=== PATIENT | female | born 1950 | race Caucasian/White ===

== ENCOUNTER 2017-03-02 21:21 | Emergency (ER) | payer OTHER ==
[2017-03-02 21:45] VITALS: BP 110/64; PULSE 90; TEMP 98.3; BMI 37.7
--- NOTE | 2017-03-02 22:27 | PDOC ---
History of Present Illness - General Chief Complaint: Respiratory Stated Complaint: CHEST PAIN Time Seen by Provider: 03/02/17 22:26 - History of Present Illness Initial Comments: 03/02/17 22:26 Mrs. Jaeger is a 66 yo female with no significant past medical history who presents to the emergency department complaining of a 1 day history of cough with productive yellow sputum and chest tightness. The patient denies shortness of breath, headache and dizziness. Denies fever, chills, nausea, vomit, diarrhea and constipation. Denies dysuria, frequency, urgency and hematuria. Allergies: NKDA Past surgical history: Denies Social history: Denies Past History - Past Medical History Allergies/Adverse Reactions: Allergies Allergy/AdvReac Type Severity Reaction Status Date / Time No Known Allergies Allergy Verified 03/02/17 21:44 Home Medications: Ambulatory Orders Pseudoephedrine HCl 30 mg PO QID #16 tablet 03/03/17 GI Disorders: Yes (GASTRIC ANTRUM ULCER 09/05) Hypercholesterolemia: Yes - Suicide/Smoking/Psychosocial Hx Smoking History: Never smoked Have you smoked in the past 12 months: No Information on smoking cessation initiated: No Hx Alcohol Use: No Drug/Substance Use Hx: No Substance Use Type: None Review of Systems - Review of Systems Comments:: 03/02/17 22:26 GENERAL/CONSTITUTIONAL: No fever or chills. No weakness. HEAD, EYES, EARS, NOSE AND THROAT: No change in vision. No ear pain or discharge. No sore throat. CARDIOVASCULAR: No chest pain or shortness of breath RESPIRATORY: +Cough with yellow sputum. No wheezing or hemoptysis. GASTROINTESTINAL: No nausea, vomiting, diarrhea or constipation. GENITOURINARY: No dysuria, frequency, or change in urination. MUSCULOSKELETAL: No joint or muscle swelling or pain. No neck or back pain. SKIN: No rash NEUROLOGIC: No headache, vertigo, loss of consciousness, or change in strength/ sensation. ENDOCRINE: No increased thirst. No abnormal weight change HEMATOLOGIC/LYMPHATIC: No anemia, easy bleeding, or history of blood clots. ALLERGIC/IMMUNOLOGIC: No hives or skin allergy. *Physical Exam - Vital Signs Last Vital Signs Temp Pulse Resp BP Pulse Ox 98.3 F 90 18 110/64 99 03/02/17 21:41 03/02/17 21:41 03/02/17 21:41 03/02/17 21:41 03/02/17 21:41 - Physical Exam Comments: 03/02/17 22:26 GENERAL: +Hacking cough observed. Awake, alert, and fully oriented, in no acute distress HEAD: No signs of trauma, normocephalic, atraumatic EYES: PERRLA, EOMI, sclera anicteric, conjunctiva clear ENT: Auricles normal inspection, hearing grossly normal, nares patent, oropharynx clear without exudates. Moist mucosa NECK: Normal ROM, supple, no lymphadenopathy, JVD, or masses LUNGS: No distress, speaks full sentences, clear to auscultation bilaterally HEART: Regular rate and rhythm, normal S1 and S2, no murmurs, rubs or gallops, peripheral pulses normal and equal bilaterally. ABDOMEN: Soft, nontender, normoactive bowel sounds. No guarding, no rebound. No masses EXTREMITIES: Normal inspection, Normal range of motion, no edema. No clubbing or cyanosis. NEUROLOGICAL: Cranial nerves II through XII grossly intact. Normal speech, normal gait, no focal sensorimotor deficits SKIN: Warm, Dry, normal turgor, no rashes or lesions noted. Medical Decision Making - Medical Decision Making 03/03/17 00:14 Ms. Jaeger presents with a 1 day history of cough with yellow sputum. CXR negative for acute process. Discharging patient to home with supportive care instructions. *DC/Admit/Observation/Transfer Diagnosis at time of Disposition: Cough - Discharge Dispostion Disposition: HOME - Referrals Referrals: Scott Segura MD [Primary Care Provider] - - Patient Instructions Printed Discharge Instructions: DI for Cough -- Adult
--- NOTE | 2017-03-02 22:38 | PDOC ---
Attending Attestation - HPI HPI: 03/02/17 22:49 66 yr old female, with no significant past medical history, who presents to the emergency room complaining of 1 day of chest discomfort and productive cough with yellow sputum. She describes the chest discomfort as tightness that is 8/ 10 in severity. Denies fever, chills, nausea, vomiting. Denies sick contact. Denies recent travel. <Chuyita Blanton - Last Filed: 03/02/17 22:49> - Resident Resident Name: Raad Rod - ED Attending Attestation I have performed the following: I have examined & evaluated the patient, The case was reviewed & discussed with the resident, I agree w/resident's findings & plan, Exceptions are as noted - HPI HPI: 03/03/17 00:25 cough for several days. Non productive cough - Physicial Exam PE: 03/03/17 00:26 Physical Exam General Appearance: Yes: Appropriately Dressed. No: Apparent Distress, Intoxicated HEENT: positive: EOMI, SHANELLE, Normal ENT Inspection, Normal Voice, TMs Normal, Pharynx Normal. negative: Pale Conjunctivae, Photophobia, Scleral Icterus (R), Scleral Icterus (L) Neck: positive: Trachea midline, Normal Thyroid, Supple. negative: Tender, Rigid, Carotid bruit, Stridor, Lymphadenopathy (R), Lymphadenopathy (L), Thyromegaly Respiratory/Chest: positive: Lungs Clear, Normal Breath Sounds. negative: Chest Tender, Respiratory Distress, Accessory Muscle Use, Labored Respiration, RES, Crackles, Rales, Rhonchi, Stridor, Wheezing, Dullness Cardiovascular: positive: Regular Rhythm, Regular Rate, S1, S2. negative: Edema , JVD, Murmur, Bradycardia, Tachycardia Vascular Pulses: Dorsalis-Pedis (R): 2+, Doralis-Pedis (L): 2+ Gastrointestinal/Abdominal: positive: Normal Bowel Sounds, Flat, Soft. negative : Tender, Organomegaly, Pulsatile Mass, Increased Bowel Sounds, Decreased BS, Distended, Guarding, Rebound, Hernia, Hepatomegaly, Spleenomegaly Lymphatic: negative: Adenopathy, Tenderness Musculoskeletal: positive: Normal Inspection. negative: CVA Tenderness, Decreased Range of Motion Extremity: positive: Normal Capillary Refill, Normal Inspection, Normal Range of Motion, Pelvis Stable. negative: Tender, Pedal Edema, Swelling, Erythema Integumentary: positive: Normal Color, Dry, Warm. 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 negative: EOM Palsy, Facial Droop, Sensory Deficit - Medical Decision Making 03/03/17 19:25 Pt discharged on decongestants and advised to follow up with her pcp. <Kelton Ley - Last Filed: 03/03/17 19:25>
--- NOTE | 2017-03-03 11:55 | EKG ---
Test Reason : Blood Pressure : / mmHG Vent. Rate : 078 BPM Atrial Rate : 078 BPM P-R Int : 130 ms QRS Dur : 082 ms QT Int : 380 ms P-R-T Axes : 061 002 -10 degrees QTc Int : 433 ms NORMAL SINUS RHYTHM LOW VOLTAGE QRS NONSPECIFIC T WAVE ABNORMALITY ABNORMAL ECG WHEN COMPARED WITH ECG OF 04-SEP-2015 14:58, T WAVE INVERSION NO LONGER EVIDENT IN ANTERIOR LEADS Confirmed by ANJU OLSON, HENRIK ([id number]) on 03/03/2017 11:55:17 AM Referred By: Confirmed By:HENRIK RENE MD
== END 2017-03-03 01:09 | disposition home or self-care (01) ==
LOC: JER 21:21
DX: R05 Cough (principal)
CPT/HCPCS: 71020-TC; 93005; 93010; 99281-25

== ENCOUNTER 2017-06-14 19:11 | Emergency (ER) | payer OTHER ==
[2017-06-14 19:21] VITALS: BP 119/81; PULSE 90; TEMP 99.5; BMI 37.8
--- NOTE | 2017-06-14 19:21 | PDOC ---
Rapid Medical Evaluation Time Seen by Provider: 06/14/17 19:12 Medical Evaluation: Allergies Allergy/AdvReac Type Severity Reaction Status Date / Time No Known Allergies Allergy Verified 03/02/17 21:44 06/14/17 19:16 I have performed a brief in-person evaluation of this patient. The patient presents with a chief complaint of: cough, SOB x 2 days, denies any fever, midsternal "chest pain" since last night - worse today, worse with cough , 01/30. Pt has no PMH, takes no meds. Pertinent physical exam findings: lungs CTAB I have ordered the following: flu swab The patient will proceed to the ED for further evaluation. Discharge Disposition - Diagnosis Cough - Referrals - Patient Instructions - Post Discharge Activity
--- NOTE | 2017-06-14 19:54 | PDOC ---
History of Present Illness - General Chief Complaint: Cold Symptoms Stated Complaint: CHEST PAIN/S.O.B Time Seen by Provider: 06/14/17 19:12 History Source: Patient, Family Exam Limitations: No Limitations - History of Present Illness Initial Comments: 06/14/17 19:49 Patient here with complaints of fevers, frequent nonproductive cough, body aches , sore throat pain and general body aches. Son reports that multiple family members have been diagnosed with influenza positive Timing/Duration: reports: constant, getting worse Severity: reports: moderate Associated Symptoms: reports: denies symptoms, chest pain/soreness, cough, dizziness, fever/chills, nasal drainage, sore throat Past History - Travel Traveled outside of the country in the last 30 days: No Close contact w/someone who was outside of country & ill: No - Past Medical History Allergies/Adverse Reactions: Allergies Allergy/AdvReac Type Severity Reaction Status Date / Time No Known Allergies Allergy Verified 06/14/17 19:18 Home Medications: Ambulatory Orders Oseltamivir Phosphate [Tamiflu -] 75 mg PO BID #10 capsule 06/14/17 COPD: No GI Disorders: Yes (GASTRIC ANTRUM ULCER 09/05) Hypercholesterolemia: Yes - Suicide/Smoking/Psychosocial Hx Smoking History: Never smoked Have you smoked in the past 12 months: No Information on smoking cessation initiated: No Hx Alcohol Use: No Drug/Substance Use Hx: No Substance Use Type: None Review of Systems - Review of Systems Able to Perform ROS?: Yes Is the patient limited Mongolian proficient: Yes Constitutional: Yes: Symptoms Reported, See HPI, Malaise. No: Fever HEENTM: Yes: Symptoms Reported, See HPI, Nose Congestion Respiratory: Yes: Symptoms reported, See HPI, Cough, Shortness of Breath. No: Wheezing Musculoskeletal: Yes: Symptoms Reported Integumentary: Yes: Symptoms Reported, See HPI All Other Systems: Reviewed and Negative *Physical Exam - Vital Signs Last Vital Signs Temp Pulse Resp BP Pulse Ox 99.5 F 90 18 119/81 97 06/14/17 19:19 06/14/17 19:19 06/14/17 19:19 06/14/17 19:19 06/14/17 19:19 - Physical Exam General Appearance: Yes: Nourished, Appropriately Dressed, Apparent Distress HEENT: positive: SHANELLE, Normal ENT Inspection, TMs Normal, Pharynx Normal, Rhinorrhea, Sinus Tenderness, Thrush Neck: positive: Supple, Lymphadenopathy (R) Respiratory/Chest: positive: Lungs Clear, Normal Breath Sounds (but coarse) Musculoskeletal: positive: Normal Inspection Extremity: positive: Normal Capillary Refill, Normal Inspection, Normal Range of Motion Integumentary: positive: Normal Color, Dry, Warm, Pale 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, Fully Oriented, Alert, Normal Mood/ Affect, Normal Response, Motor Strength 09/24 Progress Note - Progress Note Progress Note: Influenzal respiratory , will treat with Tamiflu as FAMILY is ill with positive results *DC/Admit/Observation/Transfer Diagnosis at time of Disposition: Cough, Influenzal acute upper respiratory infection - Discharge Dispostion Disposition: HOME Condition at time of disposition: Stable Admit: No - Referrals - Patient Instructions Printed Discharge Instructions: DI for Viral Upper Respiratory Infection -- Adult Additional Instructions: Rest, drink lots of fluids: Teas, water, soups, Pedialyte Saltwater gargles Steamy showers/seem to face break up mucus Old-fashioned treatments help! Avoid contact with others until fevers and cough resolved as this is very contagious Lots of handwashing and good hygiene Continue [id number] medications for symptomatic relief Tylenol or Motrin for fever and pain Take all of Tamiflu as directed: 1 tab every 12 hours for 5 days Followup with private physician in one to 2 days as needed or if worsening Return to emergency department for worsened symptoms, fevers, dehydration Influenza takes between 5 and 7 days for resolution To not participate in any activity, work, or school until fevers and cough are gone for at least one day - Post Discharge Activity Forms/Work/School Notes: Back to Work
--- NOTE | 2017-06-15 12:43 | EKG ---
Test Reason : Blood Pressure : / mmHG Vent. Rate : 084 BPM Atrial Rate : 084 BPM P-R Int : 128 ms QRS Dur : 074 ms QT Int : 352 ms P-R-T Axes : 055 006 000 degrees QTc Int : 415 ms NORMAL SINUS RHYTHM NONSPECIFIC ST AND T WAVE ABNORMALITY ABNORMAL ECG WHEN COMPARED WITH ECG OF 02-MAR-2017 22:07, NO SIGNIFICANT CHANGE WAS FOUND Confirmed by ESTEVAN ROJAS MD ([id number]) on 06/15/2017 12:43:19 PM Referred By: Confirmed By:ESTEVAN ROJAS MD
== END 2017-06-14 20:14 | disposition home or self-care (01) ==
LOC: JERFT 19:11
DX: J11.1 Influenza due to unidentified influenza virus with other respiratory manifestations (principal); E78.00 Pure hypercholesterolemia, unspecified; Z87.19 Personal history of other diseases of the digestive system
CPT/HCPCS: 87804; 93005; 93010; 99281-25

== ENCOUNTER 2017-06-23 13:21 | Emergency (ER) | payer SELFPAY ==
[2017-06-23 13:33] VITALS: BMI 37.8
[2017-06-23] MEDS ORDERED: ALBUTEROL SO4 2.5/IPRATROPIUM 0.5 INH SOL 3 ML VIAL.NEB. NEB ONE ×2 (15:39→17:10)
--- NOTE | 2017-06-23 15:42 | PDOC ---
Rapid Medical Evaluation Chief Complaint: Shortness of Breath Medical Evaluation: Allergies Allergy/AdvReac Type Severity Reaction Status Date / Time No Known Allergies Allergy Verified 06/23/17 13:30 Vital Signs Temp Pulse Resp BP Pulse Ox 98.3 F 106 H 18 122/75 100 06/23/17 13:32 06/23/17 13:32 06/23/17 13:32 06/23/17 13:32 06/23/17 13:32 06/23/17 15:41 Patient triaged before start of RME, seen in waiting room. 67 year old female with history of PUD seen here on 06/14 and diagnosed with influenza. Completed course of Tamiflu, but is having worsening symptoms including cough, shortness of breath, and chest pain. V/s notable for P 106. EKG CXR Labs including CBC, CMP, cardiac profile, lactic acid, blood cultures DuoNeb Discharge Disposition - Discharge Dispostion Last Admission D/C Date: 09/05/15 - Referrals Referrals: Scott Segura MD [Primary Care Provider] - - Patient Instructions - Post Discharge Activity
[2017-06-23 16:49] LABS: BASO % 0.5 % (0-2.0); EOS % 0.5 % (0-4.5); HEMATOCRIT 36.4 % (32.4-45.2); HEMOGLOBIN 12.3 GM/dL (10.7-15.3); LYMPH % 42.2 % (8-40); MCH 28.4 pg (25.7-33.7); MCHC 33.6 g/dl (32.0-36.0); MEAN CELL VOLUME 84.3 fl (80-96); MEAN PLT VOLUME 9.1 fl (7.5-11.1); NEUT % 50.8 % (42.8-82.8); PLATELET COUNT 202 K/MM3 (134-434); RBC 4.32 M/mm3 (3.60-5.2); RDW 14.3 % (11.6-15.6); WHITE BLOOD COUNT 10.3 K/mm3 (4.0-10.0)
[2017-06-23 17:09] LABS: ALBUMIN 3.9 g/dl (3.4-5.0); ANION GAP 8 (8-16); BLOOD UREA NITROGEN 12 mg/dL (7-18); CALCIUM 8.5 mg/dL (8.5-10.1); CHLORIDE 105 mmol/L (98-107); CO2 25 mmol/L (21-32); GLUCOSE,RANDOM 96 mg/dL (74-106); POTASSIUM 3.7 mmol/L (3.5-5.1); SODIUM 138 mmol/L (136-145)
[2017-06-23] MEDS ORDERED: guaiFENesin 200 MG/10 ML 10 ML UNIT-DOSE CUPS PO ONE (17:14)
[2017-06-23] MEDS ORDERED: guaiFENesin/CODEINE 10 ML UNIT-DOSE CUPS PO ONE (17:14)
[2017-06-23 17:16] LABS: ALK PHOS 98 U/L (45-117); BILIRUBIN,TOTAL 1.2 mg/dL (0.2-1.0); CREATININE 0.6 mg/dL (0.55-1.02); SGOT/AST 33 U/L (15-37); SGPT/ALT 46 U/L (12-78); TOT PROT 7.8 g/dl (6.4-8.2)
[2017-06-23] MEDS ORDERED: guaiFENesin/CODEINE 5 ML UNIT-DOSE CUPS PO ONE (17:16)
[2017-06-23 19:22] VITALS: BP 108/93; PULSE 93; TEMP 99.3
[2017-06-23] MEDS ORDERED: AZITHROMYCIN 250 MG TABLET PO ONE (19:30)
--- NOTE | 2017-06-23 19:38 | PDOC ---
History of Present Illness - General History Source: Patient, Family Exam Limitations: No Limitations <Panchito Gillespie - Last Filed: 06/23/17 19:41> - General History Source: Patient Exam Limitations: No Limitations - History of Present Illness Initial Comments: 06/23/17 20:15 The patient is a 67 year old female, with no significant past medical history, who presents to the emergency department with, progressively worsening dry cough and shortness of breath for approx. 1 weeks. The patient reports she was diagnosed with influenza on 06/14/17 and prescribed Tamiflu which she finished approx. 4 days ago. The patient reports that in the past couple of days the dry cough has been progressively getting worse and reports the dry cough is worse at night and interfering with her sleep. She denies recent fevers , chills, headache or dizziness. She denies recent nausea, vomit, diarrhea or constipation. She denies recent dysuria, frequency, urgency or hematuria. She denies recent chest pain. Allergies: NKA Past surgical history: None reported. Social history: Nonsmoker. Denies EtOH use and recreational drug use. Primary Care Physician: Dr. Segura <Fransisco Montoya - Last Filed: 06/23/17 21:41> - General Chief Complaint: Shortness of Breath Stated Complaint: COUGH Time Seen by Provider: 06/23/17 19:21 Past History - Past Medical History COPD: No GI Disorders: Yes (GASTRIC ANTRUM ULCER 09/05) Hypercholesterolemia: Yes - Suicide/Smoking/Psychosocial Hx Smoking History: Never smoked Have you smoked in the past 12 months: No Information on smoking cessation initiated: No Hx Alcohol Use: No Drug/Substance Use Hx: No Substance Use Type: None <Panchito Gillespie - Last Filed: 06/23/17 19:41> <Fransisco Montoya - Last Filed: 06/23/17 21:41> - Past Medical History Allergies/Adverse Reactions: Allergies Allergy/AdvReac Type Severity Reaction Status Date / Time No Known Allergies Allergy Verified 06/23/17 13:30 Home Medications: Ambulatory Orders Oseltamivir Phosphate [Tamiflu -] 75 mg PO BID #10 capsule 06/14/17 Albuterol Sulfate Inhaler - [Ventolin HFA Inhaler -] 1 - 2 inh PO Q4H PRN #1 inhaler 06/23/17 Albuterol Sulfate Inhaler - [Ventolin HFA Inhaler -] 1 - 2 inh PO Q4H PRN #1 inhaler 06/23/17 Azithromycin 250 mg PO DAILY #4 tablet 06/23/17 Azithromycin 250 mg PO DAILY #4 tablet 06/23/17 Guaifenesin Dm [Robitussin Dm -] 10 ml PO Q8H PRN #15 cup 06/23/17 Guaifenesin Dm [Robitussin Dm -] 10 ml PO Q8H PRN #15 cup 06/23/17 Review of Systems - Review of Systems Comments:: 06/23/17 20:16 GENERAL/CONSTITUTIONAL: No fever or chills. No weakness. HEAD, EYES, EARS, NOSE AND THROAT: No change in vision. No ear pain or discharge. No sore throat. CARDIOVASCULAR: +Shortness of breath. No chest pain. RESPIRATORY: +Dry cough. No wheezing, or hemoptysis. GASTROINTESTINAL: No nausea, vomiting, diarrhea or constipation. GENITOURINARY: No dysuria, frequency, or change in urination. MUSCULOSKELETAL: No joint or muscle swelling or pain. No neck or back pain. SKIN: No rash NEUROLOGIC: No headache, vertigo, loss of consciousness, or change in strength/ sensation. ENDOCRINE: No increased thirst. No abnormal weight change. HEMATOLOGIC/LYMPHATIC: No anemia, easy bleeding, or history of blood clots. ALLERGIC/IMMUNOLOGIC: No hives or skin allergy. <Fransisco Montoya - Last Filed: 06/23/17 21:41> *Physical Exam - Vital Signs Last Vital Signs Temp Pulse Resp BP Pulse Ox 99.3 F 93 H 20 108/93 99 06/23/17 19:21 06/23/17 19:21 06/23/17 19:21 06/23/17 19:21 06/23/17 19:21 <Panchito Gillespie - Last Filed: 06/23/17 19:41> - Vital Signs Last Vital Signs Temp Pulse Resp BP Pulse Ox 99.3 F 93 H 20 108/93 99 06/23/17 19:21 06/23/17 19:21 06/23/17 19:21 06/23/17 19:21 06/23/17 19:21 - Physical Exam Comments: 06/23/17 20:17 GENERAL: Awake, alert, and fully oriented. HEAD: No signs of trauma EYES: PERRLA, EOMI, sclera anicteric, conjunctiva clear ENT: Auricles normal inspection, hearing grossly normal, nares patent, oropharynx clear without exudates. Moist mucosa NECK: Normal ROM, supple, no lymphadenopathy, JVD, or masses LUNGS: +Coughing sporadically during exam. Breath sounds equal, clear to auscultation bilaterally. No wheezes, and no crackles HEART: Regular rate and rhythm, normal S1 and S2, no murmurs, rubs or gallops ABDOMEN: Soft, nontender, normoactive bowel sounds. No guarding, no rebound. No masses EXTREMITIES: Normal range of motion, no edema. No clubbing or cyanosis. No cords, erythema, or tenderness NEUROLOGICAL: Cranial nerves II through XII grossly intact. Normal speech, normal gait SKIN: Warm, Dry, normal turgor, no rashes or lesions noted. <Fransisco Montoya - Last Filed: 06/23/17 21:41> Heart Score/ECG Review #1 ECG reviewed & interpreted by me at: 14:00 06/23/17 19:34 NSR 98, no std/ben, TWI III, normal axis, normal intervals, QTC 474 msec <Panchito Gillespie - Last Filed: 06/23/17 19:41> ED Treatment Course - LABORATORY CBC & Chemistry Diagram: 06/23/17 16:05 06/23/17 16:05 - ADDITIONAL ORDERS Additional order review: Laboratory Results 06/23/17 06/23/17 16:05 16:05 Sodium 138 Potassium 3.7 Chloride 105 Carbon Dioxide 25 Anion Gap 8 BUN 12 Creatinine 0.6 Creat Clearance w eGFR > 60 Random Glucose 96 Lactic Acid 1.2 Calcium 8.5 Total Bilirubin 1.2 H D AST 33 ALT 46 Alkaline Phosphatase 98 Creatine Kinase 110 Troponin I < 0.02 Total Protein 7.8 Albumin 3.9 06/23/17 16:05 RBC 4.32 MCV 84.3 MCHC 33.6 RDW 14.3 MPV 9.1 Neutrophils % 50.8 Lymphocytes % 42.2 H Monocytes % 6.0 Eosinophils % 0.5 D Basophils % 0.5 - Medications Given in the ED: ED Medications Discontinued Medications Generic Name Dose Route Start Last Admin Trade Name Freq PRN Reason Stop Dose Admin Albuterol/Ipratropium 1 amp 06/23/17 15:39 02/01/18 15:42 Duoneb - NEB 06/23/17 15:40 1 amp ONCE ONE Administration Albuterol/Ipratropium 1 amp 06/23/17 17:10 06/23/17 17:11 Duoneb - NEB 06/23/17 17:11 1 amp ONCE ONE Administration Guaifenesin/Codeine Phosphate 10 ml 06/23/17 17:14 06/23/17 17:18 Robitussin Ac - PO 06/23/17 17:15 10 ml ONCE ONE Administration <Panchito Gillespie - Last Filed: 06/23/17 19:41> - LABORATORY CBC & Chemistry Diagram: 06/23/17 16:05 06/23/17 16:05 - ADDITIONAL ORDERS Additional order review: Laboratory Results 06/23/17 06/23/17 16:05 16:05 Sodium 138 Potassium 3.7 Chloride 105 Carbon Dioxide 25 Anion Gap 8 BUN 12 Creatinine 0.6 Creat Clearance w eGFR > 60 Random Glucose 96 Lactic Acid 1.2 Calcium 8.5 Total Bilirubin 1.2 H D AST 33 ALT 46 Alkaline Phosphatase 98 Creatine Kinase 110 Troponin I < 0.02 Total Protein 7.8 Albumin 3.9 06/23/17 16:05 RBC 4.32 MCV 84.3 MCHC 33.6 RDW 14.3 MPV 9.1 Neutrophils % 50.8 Lymphocytes % 42.2 H Monocytes % 6.0 Eosinophils % 0.5 D Basophils % 0.5 - RADIOLOGY Radiograph Interpretation: 06/23/17 21:40 EXAM#: TYPE/EXAM: RESULT: [id number] RAD/CHEST PA LAT Exam: Chest x-ray - PA and lateral views. Indication: Clinical suspicion for pneumonia. Comparison: 03/02/2017 chest x-ray. Findings: There is no evidence of acute infiltrate, pulmonary vascular congestion, pleural effusion or pneumothorax. Normal size and contours of the cardiomediastinal silhouette. The thoracic aorta is uncoiled. Impression: No evidence of acute infiltrate or pleural effusion. Reported By: Sid Tierney DO - Medications Given in the ED: ED Medications Discontinued Medications Generic Name Dose Route Start Last Admin Trade Name Freq PRN Reason Stop Dose Admin Albuterol/Ipratropium 1 amp 06/23/17 15:39 06/23/17 15:42 Duoneb - NEB 06/23/17 15:40 1 amp ONCE ONE Administration Albuterol/Ipratropium 1 amp 06/23/17 17:10 06/23/17 17:11 Duoneb - NEB 06/23/17 17:11 1 amp ONCE ONE Administration Azithromycin 500 mg 06/23/17 19:30 06/23/17 20:06 Zithromax - PO 06/23/17 19:31 500 mg ONCE ONE Administration Guaifenesin/Codeine Phosphate 10 ml 06/23/17 17:14 06/23/17 17:18 Robitussin Ac - PO 06/23/17 17:15 10 ml ONCE ONE Administration <Fransisco Montoya - Last Filed: 06/23/17 21:41> Medical Decision Making - Medical Decision Making 06/23/17 19:31 A portion of this note was written by my scribe, under my supervision. Vital Signs Temp Pulse Resp BP Pulse Ox 99.3 F 93 H 20 108/93 99 06/23/17 19:21 06/23/17 19:21 06/23/17 19:21 06/23/17 19:21 06/23/17 19:21 67 year old female with history of HLD, GERD p/w persistent cough. On 06/14, the patient was diagnosed with influenza and prescribed. The patient was given a prescription of tamiflu which the patient has completed. However, developed wosrening cough, chest congestion, but no fevers, chills. Denies chest pain or shortness of breath. Pt attempted to go to PMD but office was unavailable. Came into the ED for an evaluation. Chest xray reviewed. No infiltrates. CBC, BMP 06/23/17 16:05 06/23/17 16:05 CMP Sodium 138 mmol/L (136-145) 06/23/17 16:05 Potassium 3.7 mmol/L (3.5-5.1) 06/23/17 16:05 Chloride 105 mmol/L (98-107) 06/23/17 16:05 Carbon Dioxide 25 mmol/L (21-32) 06/23/17 16:05 Anion Gap 8 (8-16) 06/23/17 16:05 BUN 12 mg/dL (7-18) 06/23/17 16:05 Creatinine 0.6 mg/dL (0.55-1.02) 06/23/17 16:05 Creat Clearance w eGFR > 60 (>60) 06/23/17 16:05 Random Glucose 96 mg/dL (74-106) 06/23/17 16:05 Lactic Acid 1.2 mmol/L (0.0-2.0) 06/23/17 16:05 Calcium 8.5 mg/dL (8.5-10.1) 06/23/17 16:05 Total Bilirubin 1.2 mg/dL (0.2-1.0) H D 06/23/17 16:05 AST 33 U/L (15-37) 06/23/17 16:05 ALT 46 U/L (12-78) 06/23/17 16:05 Alkaline Phosphatase 98 U/L (45-117) 06/23/17 16:05 Creatine Kinase 110 IU/L (26-192) 06/23/17 16:05 Troponin I < 0.02 ng/ml (0.00-0.05) 06/23/17 16:05 Total Protein 7.8 g/dl (6.4-8.2) 06/23/17 16:05 Albumin 3.9 g/dl (3.4-5.0) 06/23/17 16:05 Labs reviewed. WBC 10.3 The patient overall is nontoxic appearing. She is breathing comfortably, coughing throughout the exam. No pneumonia noted, however, will treat as bronchitis. Will initiate azithromycin and have the patient follow up with PMD early next week. I had instructed the patient and family to return to the ER if symptoms worsen. <Panchito Gillespie - Last Filed: 06/23/17 19:41> *DC/Admit/Observation/Transfer - Discharge Dispostion Admit: No <Panchito Gillespie - Last Filed: 06/23/17 19:41> - Attestations Scribe Attestion: 06/23/17 20:17 Documentation prepared by Fransisco Montoya, acting as medical research scientist for Panchito Gillespie MD. <Fransisco Montoya - Last Filed: 06/23/17 21:41> Diagnosis at time of Disposition: Bronchitis - Discharge Dispostion Disposition: HOME Condition at time of disposition: Stable - Prescriptions Prescriptions: Albuterol Sulfate Inhaler - [Ventolin HFA Inhaler -] 1 - 2 inh PO Q4H PRN #1 inhaler PRN Reason: Wheezing Albuterol Sulfate Inhaler - [Ventolin HFA Inhaler -] 1 - 2 inh PO Q4H PRN #1 inhaler PRN Reason: Cough Azithromycin 250 mg PO DAILY #4 tablet Azithromycin 250 mg PO DAILY #4 tablet Guaifenesin Dm [Robitussin Dm -] 10 ml PO Q8H PRN #15 cup PRN Reason: Cough Guaifenesin Dm [Robitussin Dm -] 10 ml PO Q8H PRN #15 cup PRN Reason: Cough - Referrals Referrals: Scott Segura MD [Primary Care Provider] - - Patient Instructions Printed Discharge Instructions: DI for Acute Bronchitis Additional Instructions: Your chest radiograph is negative for pneumonia. Your blood work is unremarkable. Please take the azithromycin as prescribed. Follow up with your doctor on Tuesday. If your coughing is worsening or you develop a fever, please call your doctor or return to the ER. - Post Discharge Activity
[2017-06-23] MEDS ORDERED: AZITHROMYCIN 250 MG TABLET ONE (20:08)
--- NOTE | 2017-06-24 10:10 | EKG ---
Test Reason : Blood Pressure : / mmHG Vent. Rate : 098 BPM Atrial Rate : 098 BPM P-R Int : 120 ms QRS Dur : 082 ms QT Int : 372 ms P-R-T Axes : 055 -04 -03 degrees QTc Int : 474 ms NORMAL SINUS RHYTHM NONSPECIFIC ST ABNORMALITY ABNORMAL ECG WHEN COMPARED WITH ECG OF 14-JUN-2017 19:26, NONSPECIFIC T WAVE ABNORMALITY NO LONGER EVIDENT IN ANTERIOR LEADS QT HAS LENGTHENED Confirmed by BANDAR OLSON, PREM ([id number]) on 06/24/2017 10:10:23 AM Referred By: Confirmed By:PREM PORTILLO MD
== END 2017-06-23 20:21 | disposition home or self-care (01) ==
LOC: JER 13:21
PROC: 3E0F7GC Introduction of Other Therapeutic Substance into Respiratory Tract, Via Natural or Artificial Opening (ICD-10-PCS; principal; 2017-06-23)
PROC: 3E0F7GC Introduction of Other Therapeutic Substance into Respiratory Tract, Via Natural or Artificial Opening (ICD-10-PCS; 2017-06-23)
DX: J40 Bronchitis, not specified as acute or chronic (principal); K21.9 Gastro-esophageal reflux disease without esophagitis; E78.00 Pure hypercholesterolemia, unspecified
CPT/HCPCS: 36415; 71046-TC-FY; 80053; 82550; 83605; 84484; 85025; 87040; 93005; 93010; 99283-25

== ENCOUNTER 2017-09-14 16:38 | Observation (INO) | payer OTHER ==
--- NOTE | 2017-09-14 16:43 | PDOC ---
History of Present Illness - General History Source: Patient Exam Limitations: No Limitations <Elisa Kong - Last Filed: 09/14/17 18:06> <Sohail White - Last Filed: 09/19/17 07:05> - General Chief Complaint: Pain Stated Complaint: CHEST PAIN Time Seen by Provider: 09/14/17 16:41 - History of Present Illness Initial Comments: 09/14/17 18:03 The patient is a 67 year old female with a significant PMH of GERD, and left knee arthroscopy(6 years ago) who presents to the emergency department with chest pain for 1 day. The patient reports that she was at home resting yesterday when she felt a sudden onset of chest pain. She reports that she experienced some associated dizziness and nausea with her chest pain. The patient reports that when she woke up today her chest pain had worsened. She describes her chest pain as tight and sharp and worsens with a deep breath. She reports that she feels minimal relief of her chest pain when she lays down. The patient denies any palpitations shortness of breath. She denies any headache, dizziness, fever, or vomiting. She reports that this has never happened before. The patient denies any other complaints. Allergies: NKA Past surgical history: Left knee arthroscopy (6 years ago) Social history: None reported (Elisa Kong) Physical exam: Alert well-developed well-nourished no acute distress cooperative Afebrile, vital signs normal HEENT clear Neck supple without bruit mass or nodes Lungs clear with full breath sounds throughout bilaterally CV S1-S2 normal without murmur rub or gallop pulses full and symmetric no JVD or edema no bruits Abdomen soft nontender without mass or organomegaly Neurological intact Skin clear, no rash, adequate turgor and wet mucous membranes Extremities no CCE Impression: Possible acute coronary syndrome Plan: EKG and cardiac enzymes, CBC and chemistries, monitor, further medical management depending on results. (Sohail White) Past History <Elisa Kong - Last Filed: 09/14/17 18:06> - Past Medical History COPD: No GI Disorders: Yes (GASTRIC ANTRUM ULCER 09/05) Hypercholesterolemia: Yes - Suicide/Smoking/Psychosocial Hx Smoking History: Never smoked Have you smoked in the past 12 months: No Hx Alcohol Use: No Drug/Substance Use Hx: No Substance Use Type: None <Sohail White - Last Filed: 09/19/17 07:05> - Past Medical History Allergies/Adverse Reactions: Allergies Allergy/AdvReac Type Severity Reaction Status Date / Time No Known Allergies Allergy Verified 09/14/17 16:40 Home Medications: Ambulatory Orders Calcium Carbonate [Tums] 1 tab PO PRN 09/14/17 Aspirin Coated [Ecotrin -] 81 mg PO DAILY #30 tablet.ec 09/15/17 Pantoprazole Sodium [Protonix] 40 mg PO DAILY #30 tablet. 09/15/17 Review of Systems - Review of Systems Able to Perform ROS?: Yes <Elisa Kong - Last Filed: 09/14/17 18:06> <Sohail White - Last Filed: 09/19/17 07:05> - Review of Systems Comments:: 09/14/17 18:05 CONSTITUTIONAL: Absent: fever, chills, diaphoresis, generalized weakness, malaise, loss of appetite HEENT: Absent: rhinorrhea, nasal congestion, throat pain, throat swelling, difficulty swallowing, mouth swelling, ear pain, eye pain, visual Changes CARDIOVASCULAR: (+) chest pain Absent: syncope, palpitations, irregular heart rate, lightheadedness, peripheral edema RESPIRATORY: Absent: cough, shortness of breath, dyspnea with exertion, orthopnea, wheezing, stridor, hemoptysis GASTROINTESTINAL: Absent: abdominal pain, abdominal distension, nausea, vomiting, diarrhea, constipation, melena, hematochezia GENITOURINARY: Absent: dysuria, frequency, urgency, hesitancy, hematuria, flank pain, genital pain MUSCULOSKELETAL: Absent: myalgia, arthralgia, joint swelling SKIN: Absent: rash, itching, pallor HEMATOLOGIC/IMMUNOLOGIC: Absent: easy bleeding, easy bruising, lymphadenopathy, frequent infections ENDOCRINE: Absent: unexplained weight gain, unexplained weight loss, heat intolerance, cold intolerance NEUROLOGIC: Absent: headache, focal weakness or paresthesias, dizziness, unsteady gait, seizure, mental status changes, bladder or bowel incontinence PSYCHIATRIC: Absent: anxiety, depression, suicidal or homicidal ideation, hallucinations. (Elisa Kong) - Vital Signs Last Vital Signs Temp Pulse Resp BP Pulse Ox 98.1 F 63 18 119/71 99 04/26/18 06:00 09/15/17 06:00 09/15/17 06:00 09/15/17 06:00 09/15/17 06:00 ED Treatment Course - LABORATORY CBC & Chemistry Diagram: 09/14/17 17:09 09/14/17 17:30 <Elisa Kong - Last Filed: 09/14/17 18:06> - LABORATORY CBC & Chemistry Diagram: 09/15/17 07:50 09/15/17 07:50 <Sohail White - Last Filed: 09/19/17 07:05> - ADDITIONAL ORDERS Additional order review: 09/14/17 17:09 RBC 4.38 MCV 85.9 MCHC 33.8 RDW 13.1 MPV 8.8 Neutrophils % 43.3 Lymphocytes % 44.3 H Monocytes % 8.4 Eosinophils % 2.9 Basophils % 1.1 - RADIOLOGY Radiology Studies Ordered: Category Date Time Status CHEST X-RAY PORTABLE* [RAD] Stat Radiology 09/14/17 16:42 Completed - Medications Given in the ED: ED Medications Discontinued Medications Generic Name Dose Route Start Last Admin Trade Name Freq PRN Reason Stop Dose Admin Aspirin 162 mg 09/14/17 17:32 09/14/17 17:36 Asa - PO 09/14/17 17:33 162 mg ONCE ONE Administration Aspirin 81 mg 09/15/17 10:00 09/15/17 10:15 Ecotrin - PO 81 mg DAILY JOHNSON Administration Famotidine 20 mg 09/14/17 22:00 09/15/17 10:15 Pepcid - PO 20 mg BID JOHNSON Administration Nitroglycerin 0.4 mg 09/14/17 17:32 09/14/17 17:36 Nitrostat - SL 09/14/17 17:33 0.4 mg ONCE ONE Administration Pantoprazole Sodium 40 mg 09/14/17 18:52 09/14/17 19:01 Protonix Iv IVPB 09/14/17 18:53 40 mg ONCE ONE Administration Medical Decision Making <Elisa Kong - Last Filed: 09/14/17 18:06> <Sohail White - Last Filed: 09/19/17 07:05> - Medical Decision Making 09/19/17 07:[address]-T wave changes in the anterolateral leads. This consists of some mild flattening of the ST segments. There is no change compared to prior cardiograms. Patient remains clinically and hemodynamically stable. Serial enzymes and EKG pending. Signed out to Dr. Hudson at 6 PM pending further lab results and medical evaluation. (Sohail White) *DC/Admit/Observation/Transfer <Elisa Kong - Last Filed: 09/14/17 18:06> <Sohail White - Last Filed: 09/19/17 07:05> Diagnosis at time of Disposition: Chest pain - Discharge Dispostion Disposition: HOME Condition at time of disposition: Stable - Attestations Scribe Attestion: 09/14/17 18:06 Documentation prepared by Elisa Kong, acting as medical claims manager for Sohail Quinteros MD. (Elisa Kong)
[2017-09-14] MEDS ORDERED: ASPIRIN 81 MG CHEWABLE TABLETS PO ONE (17:32)
[2017-09-14] MEDS ORDERED: NITROGLYCERIN SUBLINGUAL 1/150 0.4 MG TAB SL ONE (17:32)
[2017-09-14] MEDS ORDERED: ASPIRIN 81 MG CHEWABLE TABLETS ONE (17:33)
[2017-09-14] MEDS ORDERED: NITROGLYCERIN SUBLINGUAL 1/150 0.4 MG TAB ONE (17:34)
[2017-09-14 18:05] LABS: BASO % 1.1 % (0-2.0); EOS % 2.9 % (0-4.5); HEMATOCRIT 37.6 % (32.4-45.2); HEMOGLOBIN 12.7 GM/dl (10.7-15.3); LYMPH % 44.3 % (8-40); MCHC 33.8 g/dl (32.0-36.0); MEAN CELL VOLUME 85.9 fl (80-96); MEAN PLT VOLUME 8.8 fl (7.5-11.1); MONO % 8.4 % (3.8-10.2); NEUT % 43.3 % (42.8-82.8); PLATELET COUNT 242 K/MM3 (134-434); RBC 4.38 M/mm3 (3.60-5.2); RDW 13.1 % (11.6-15.6); WHITE BLOOD COUNT 9.6 K/mm3 (4.0-10.8)
[2017-09-14 18:21] LABS: ALBUMIN 3.8 g/dl (3.5-5.0); ALK PHOS 89 U/L (32-92); ANION GAP 5 (8-16); BLOOD UREA NITROGEN 19 mg/dl (7-18); CALCIUM 10.1 mg/dl (8.4-10.2); CHLORIDE 104 mmol/L (98-107); CO2 28 mmol/L (22-28); GLUCOSE,RANDOM 91 mg/dl (74-106); POTASSIUM 3.9 mmol/L (3.5-5.1); SGOT/AST 34 U/L (10-42); SGPT/ALT 36 U/L (10-40); SODIUM 137 mmol/L (136-145); TOT PROT 7.1 g/dl (6.4-8.3)
[2017-09-14 18:30] LABS: BILIRUBIN,TOTAL 0.6 mg/dl (0.2-1.0); CREATININE 0.8 mg/dl (0.6-1.3)
--- NOTE | 2017-09-14 18:46 | PDOC ---
*Physical Exam - Vital Signs Last Vital Signs Temp Pulse Resp BP Pulse Ox 98.4 F 62 16 117/56 98 09/14/17 16:39 09/14/17 18:34 09/14/17 18:34 09/14/17 18:34 09/14/17 16:39 Heart Score/ECG Review - History History: Slightly suspicious - Electrocardiogram EKG: Non specific repolarization disturbance - Age Age: >/= 65 - Risk Factors Risk Factors Heart Score: Yes Hx Obesity Based on the list above the patient has:: 1-2 risk factors - Troponin Troponin: </= normal limit - Score Heart Score - Total: 4 ED Treatment Course - LABORATORY CBC & Chemistry Diagram: 09/14/17 17:09 09/14/17 17:30 - ADDITIONAL ORDERS Additional order review: Laboratory Results 09/14/17 09/14/17 17:30 17:30 Sodium 137 Potassium 3.9 Chloride 104 Carbon Dioxide 28 Anion Gap 5 L BUN 19 H Creatinine 0.8 Creat Clearance w eGFR > 60 Random Glucose 91 Calcium 10.1 Total Bilirubin 0.6 AST 34 ALT 36 Alkaline Phosphatase 89 Creatine Kinase 163 Troponin I < 0.03 Total Protein 7.1 Albumin 3.8 09/14/17 17:09 RBC 4.38 MCV 85.9 MCHC 33.8 RDW 13.1 MPV 8.8 Neutrophils % 43.3 Lymphocytes % 44.3 H Monocytes % 8.4 Eosinophils % 2.9 Basophils % 1.1 - Medications Given in the ED: ED Medications Discontinued Medications Generic Name Dose Route Start Last Admin Trade Name Freq PRN Reason Stop Dose Admin Aspirin 162 mg 09/14/17 17:32 09/14/17 17:36 Asa - PO 09/14/17 17:33 162 mg ONCE ONE Administration Nitroglycerin 0.4 mg 09/14/17 17:32 09/14/17 17:36 Nitrostat - SL 09/14/17 17:33 0.4 mg ONCE ONE Administration Progress Note - Progress Note Progress Note: Care of this patient received from . Patient presents with midsternal chest pain without associated symptoms. Patient received nitroglycerin 0.4 mg sublingually with relief of her pain. No previous history of this type of pain. Patient has a history of GERD but today's pain is very different from her usual reflux discomfort. According to son, patient had upper endoscopy last year that was reportedly "normal". No known history of esophagitis secondary to GERD. Electrocardiogram shows flattening of T waves in lateral leads; this has been present previously and EKGs dated 03/02/17 and 06/23/17. No other significant abnormality seen on EKG tracing. Laboratory evaluation shows evidence of mild prerenal azotemia but no other significant abnormality. Troponin is not elevated Patient's PMD is Dr. Segura. Case discussed with [facility] hospitalist admitting physician, Dr. Rosenbaum. Hospitalist service will admit this patient if Dr. Segura does not admit. covering for : He was contacted and case discussed with him: Hospitalist service can admit. Patient admitted to telemetry/observation status. *DC/Admit/Observation/Transfer Diagnosis at time of Disposition: Chest pain Qualifiers: Chest pain type: precordial pain Qualified Code(s): R07.2 - Precordial pain - Discharge Dispostion Disposition: HOME Condition at time of disposition: Stable Admit: Yes - Referrals - Patient Instructions - Post Discharge Activity
[2017-09-14] MEDS ORDERED: PANTOPRAZOLE SODIUM 40 MG VIAL IVPB ONE (18:52)
[2017-09-14] MEDS ORDERED: PANTOPRAZOLE SODIUM 40 MG VIAL ONE (18:54)
--- NOTE | 2017-09-14 20:50 | HP ---
CHIEF COMPLAINT: PCP: HISTORY OF PRESENT ILLNESS: The patient is a 67 year old female with a significant PMH of GERD, and left knee arthroscopy(6 years ago) who presents to the emergency department with chest pain for 1 day. The patient reports that she was at home resting yesterday when she felt a sudden onset of chest pain. She reports that she experienced some associated dizziness and nausea with her chest pain. The patient reports that when she woke up today her chest pain had worsened. She describes her chest pain as tight and sharp and worsens with a deep breath. She reports that she feels minimal relief of her chest pain when she lays down. The patient denies any palpitations shortness of breath. She denies any headache, dizziness, fever, or vomiting. She reports that this has never happened before. The patient denies any other complaints. Allergies: NKA Past surgical history: Left knee arthroscopy (6 years ago) Social history: None reported ER course was notable for: (1) first trop <0.03 (2) chest pain subsided (3) Social History: denies Smoking: Alcohol: Drugs: Family History: Allergies No Known Allergies Allergy (Verified 09/14/17 16:40) HOME MEDICATIONS: Home Medications Medication Instructions Recorded Calcium Carbonate [Tums] 1 tab PO PRN 09/14/17 Esomeprazole Magnesium [Nexium 20 mg PO PRN 09/14/17 24Hr] REVIEW OF SYSTEMS CONSTITUTIONAL: Absent: fever, chills, diaphoresis, generalized weakness, malaise, loss of appetite, weight change HEENT: Absent: rhinorrhea, nasal congestion, throat pain, throat swelling, difficulty swallowing, mouth swelling, ear pain, eye pain, visual changes CARDIOVASCULAR: Absent: +chest pain, -syncope, palpitations, irregular heart rate, lightheadedness, peripheral edema RESPIRATORY: Absent: cough, shortness of breath, dyspnea with exertion, orthopnea, wheezing, stridor, hemoptysis GASTROINTESTINAL: Absent: abdominal pain, abdominal distension, nausea, vomiting, diarrhea, constipation, melena, hematochezia GENITOURINARY: Absent: dysuria, frequency, urgency, hesitancy, hematuria, flank pain, genital pain MUSCULOSKELETAL: Absent: myalgia, arthralgia, joint swelling, back pain, neck pain SKIN: Absent: rash, itching, pallor HEMATOLOGIC/IMMUNOLOGIC: Absent: easy bleeding, easy bruising, lymphadenopathy, frequent infections ENDOCRINE: Absent: unexplained weight gain, unexplained weight loss, heat intolerance, cold intolerance NEUROLOGIC: Absent: headache, focal weakness or paresthesias, dizziness, unsteady gait, seizure, mental status changes, bladder or bowel incontinence PSYCHIATRIC: Absent: anxiety, depression, suicidal or homicidal ideation, hallucinations. PHYSICAL EXAMINATION Vital Signs - 24 hr 09/14/17 09/14/17 16:39 18:34 Temperature 98.4 F Pulse Rate 71 Pulse Rate [ 62 Right Radial] Respiratory 20 16 Rate Blood Pressure 144/76 Blood Pressure 117/56 [Left Arm] O2 Sat by Pulse 98 Oximetry (%) GENERAL: Awake, alert, and fully oriented, only speaks Mohawk, in no acute distress. HEAD: Normal with no signs of trauma. LUNGS: Breath sounds equal, clear to auscultation bilaterally. No wheezes, and no crackles. No accessory muscle use. HEART: Regular rate and rhythm, normal S1 and S2 without murmur, rub or gallop. denies current chest pain ABDOMEN: Soft, nontender, not distended, normoactive bowel sounds, no guarding, no rebound, no masses. No hepatomegaly or splenomegaly. MUSCULOSKELETAL: Normal range of motion at all joints. No bony deformities or tenderness. No CVA tenderness. UPPER EXTREMITIES: 2+ pulses, warm, well-perfused. No cyanosis. No clubbing. No peripheral edema. LOWER EXTREMITIES: 2+ pulses, warm, well-perfused. No calf tenderness. No peripheral edema. NEUROLOGICAL: Cranial nerves II-XII intact. Normal speech. Normal gait. PSYCHIATRIC: Cooperative. Good eye contact. Appropriate mood and affect. SKIN: Warm, dry, normal turgor, no rashes or lesions noted, normal capillary refill. Laboratory Results - last 24 hr 09/14/17 09/14/17 09/14/17 17:09 17:30 17:30 WBC 9.6 RBC 4.38 Hgb 12.7 Hct 37.6 MCV 85.9 MCH 29.0 MCHC 33.8 RDW 13.1 Plt Count 242 MPV 8.8 Neutrophils % 43.3 Lymphocytes % 44.3 H Monocytes % 8.4 Eosinophils % 2.9 Basophils % 1.1 Sodium 137 Potassium 3.9 Chloride 104 Carbon Dioxide 28 Anion Gap 5 L BUN 19 H Creatinine 0.8 Creat Clearance w eGFR > 60 Random Glucose 91 Calcium 10.1 Total Bilirubin 0.6 AST 34 ALT 36 Alkaline Phosphatase 89 Creatine Kinase 163 Creatine Kinase Index 0.8 CK-MB (CK-2) 1.4 Troponin I < 0.03 Total Protein 7.1 Albumin 3.8 ASSESSMENT/PLAN: This 67 yr old vietnamese speaking female had a bout of chest pain this afternoon and came in to ER for evaluation. She is currently admitted under Dr. Segura for cardiac observation, with a first trop neg and no EKG changes Problem List - Problem (1) Chest pain Assessment/Plan: -admission for obs for chest pain work up -admt to Dr. Norris -serial cardiac enzymes pending -no current chest pain -monitor v/s, tele Code(s): R07.9 - CHEST PAIN, UNSPECIFIED Qualifiers: Chest pain type: precordial pain Qualified Code(s): R07.2 - Precordial pain (2) ACS (acute coronary syndrome) Assessment/Plan: -continue home meds including ASA 81 mg Code(s): I24.9 - ACUTE ISCHEMIC HEART DISEASE, UNSPECIFIED Visit type - Emergency Visit Emergency Visit: Yes ED Registration Date: 09/14/17 Care time: The patient presented to the Emergency Department on the above date and was hospitalized for further evaluation of their emergent condition. - New Patient This patient is new to me today: Yes Date on this admission: 09/14/17 - Critical Care Critical Care patient: No Hospitalist Screening - Colonoscopy Questionnaire Colonoscopy Questionnaire: Colonoscopy Questionnaire - Patient: 50 - 75 years old and never had a screening colonoscopy: Unknown History of colon or rectal polyps, or CA: Unknown History of IBD, Crohn's disease or UC: Unknown History of abdominal radiation therapy as a child: Unknown - Relative: 1 with colon or rectal CA, or polyps at age 60 or younger: Unknown Colon or rectal CA diagnosed at age 45 or younger: Unknown Multiple relatives with colon or rectal CA: Unknown - Outcome: Screening Result: Negative Screen
[2017-09-14 21:23] VITALS: BMI 38.8
[2017-09-14] MEDS ORDERED: ACETAMINOPHEN 325 MG TABLET (FP) PO PRN (21:53)
[2017-09-15] MEDS: FAMOTIDINE 20 MG TABLET PO SCH ×2 (00:07→10:15)
[2017-09-15 06:53] VITALS: BP 119/71; PULSE 63; TEMP 98.1
[2017-09-15] MEDS ORDERED: PATIENT'S OWN MEDICATION (NON-FORMULARY) (Esomeprazole Magnesium [Nexium 24hr] 20 MG) PO SCH (07:45)
[2017-09-15 07:49] LABS: PH,URINE 6.5 (4.5-8); URINE APPEARANCE Clear; URINE BILIRUBIN Negative (NEGATIVE); URINE BLOOD Negative (NEGATIVE); URINE GLUCOSE (UA) Negative (NEGATIVE); URINE KETONE Negative (NEGATIVE); URINE LEUK ESTERASE Negative (NEGATIVE); URINE NITRITE Negative (NEGATIVE); URINE PROTEIN Negative (NEGATIVE); URINE UROBILINOGEN 0.2 (0.2-1.0)
[2017-09-15 07:50] LABS: URINE COLOR YELLOW
[2017-09-15 08:37] LABS: ALBUMIN 3.8 g/dl (3.5-5.0); ALK PHOS 88 U/L (32-92); ANION GAP 5 (8-16); BLOOD UREA NITROGEN 17 mg/dl (7-18); CALCIUM 9.5 mg/dl (8.4-10.2); CHLORIDE 105 mmol/L (98-107); CO2 28 mmol/L (22-28); GLUCOSE,RANDOM 99 mg/dl (74-106); PHOSPHOROUS 3.3 mg/dl (2.5-4.6); POTASSIUM 4.2 mmol/L (3.5-5.1); SGOT/AST 35 U/L (10-42); SGPT/ALT 37 U/L (10-40); SODIUM 138 mmol/L (136-145); TOT PROT 6.9 g/dl (6.4-8.3)
[2017-09-15 08:42] LABS: EOS % 3.9 % (0-4.5); HEMOGLOBIN 12.9 GM/dl (10.7-15.3); LYMPH % 40.1 % (8-40); MCH 29.1 pg (25.7-33.7); MEAN CELL VOLUME 85.7 fl (80-96); MEAN PLT VOLUME 8.3 fl (7.5-11.1); MONO % 6.5 % (3.8-10.2); NEUT % 48.5 % (42.8-82.8); PLATELET COUNT 254 K/MM3 (134-434); RBC 4.44 M/mm3 (3.60-5.2); RDW 13.1 % (11.6-15.6); WHITE BLOOD COUNT 8.2 K/mm3 (4.0-10.8)
[2017-09-15] MEDS ORDERED: ASPIRIN COATED 81 MG TABLET.EC PO SCH (10:00)
[2017-09-15 10:02] LABS: CREATININE < 0.8 mg/dl (0.6-1.3)
[2017-09-15 10:13] LABS: INR 1.16 (0.82-1.09); PROTHROMBIN TIME (PATIENT) 12.9 SEC (10.2-13.0)
--- NOTE | 2017-09-15 11:01 | DS ---
Physical Exam: SUBJECTIVE: Patient seen and examined, denies any chest pain or shortness of breath, reports chest discomfort resolved after belching this morning OBJECTIVE:The patient is a 67 year old female with a significant PMH of GERD, and left knee arthroscopy(6 years ago) who presents to the emergency department with chest pain for 1 day. The patient reports that she was at home resting yesterday when she felt a sudden onset of chest pain. She reports that she experienced some associated dizziness and nausea with her chest pain. The patient reports that when she woke up today her chest pain had worsened. She describes her chest pain as tight and sharp and worsens with a deep breath. She reports that she feels minimal relief of her chest pain when she lays down. The patient denies any palpitations shortness of breath. She denies any headache, dizziness, fever, or vomiting. She reports that this has never happened before. The patient denies any other complaints. Vital Signs Period Temp Pulse Resp BP Sys/Arellano Pulse Ox Last 24 Hr 97.8 F-98.4 F 57-71 16-20 107-144/56-76 98-100 PHYSICAL EXAM GENERAL: The patient is awake, alert, and fully oriented, in no acute distress. HEAD: Normal with no signs of trauma. EYES: PERRL, extraocular movements intact, sclera anicteric, conjunctiva clear. ENT: Ears normal, nares patent, oropharynx clear without exudates, moist mucous membranes. NECK: Trachea midline, full range of motion, supple. LUNGS: Breath sounds equal, clear to auscultation bilaterally, no wheezes, no crackles, no accessory muscle use. HEART: Regular rate and rhythm, S1, S2 without murmur, rub or gallop. ABDOMEN: Soft, nontender, nondistended, normoactive bowel sounds, no guarding, no rebound, no hepatosplenomegaly, no masses. EXTREMITIES: 2+ pulses, warm, well-perfused, no edema. NEUROLOGICAL: Cranial nerves II through XII grossly intact. Normal speech, gait not observed. PSYCH: Normal mood, normal affect. SKIN: Warm, dry, normal turgor, no rashes or lesions noted. LABS Laboratory Results - last 24 hr 09/14/17 09/14/17 09/14/17 17:09 17:30 17:30 WBC 9.6 RBC 4.38 Hgb 12.7 Hct 37.6 MCV 85.9 MCH 29.0 MCHC 33.8 RDW 13.1 Plt Count 242 MPV 8.8 Neutrophils % 43.3 Lymphocytes % 44.3 H Monocytes % 8.4 Eosinophils % 2.9 Basophils % 1.1 PT with INR INR Sodium 137 Potassium 3.9 Chloride 104 Carbon Dioxide 28 Anion Gap 5 L BUN 19 H Creatinine 0.8 Creat Clearance w eGFR > 60 Random Glucose 91 Calcium 10.1 Phosphorus Magnesium Total Bilirubin 0.6 AST 34 ALT 36 Alkaline Phosphatase 89 Creatine Kinase 163 Creatine Kinase Index 0.8 CK-MB (CK-2) 1.4 Troponin I < 0.03 Total Protein 7.1 Albumin 3.8 Urine Color Urine Appearance Urine pH Ur Specific [place] Urine Protein Urine Glucose (UA) Urine Ketones Urine Blood Urine Nitrite Urine Bilirubin Urine Urobilinogen Ur Leukocyte Esterase 09/14/17 09/15/17 09/15/17 23:30 07:14 07:50 WBC 8.2 RBC 4.44 Hgb 12.9 Hct 38.0 MCV 85.7 MCH 29.1 MCHC 34.0 RDW 13.1 Plt Count 254 MPV 8.3 Neutrophils % 48.5 Lymphocytes % 40.1 H Monocytes % 6.5 Eosinophils % 3.9 Basophils % 1.0 PT with INR INR Sodium Potassium Chloride Carbon Dioxide Anion Gap BUN Creatinine Creat Clearance w eGFR Random Glucose Calcium Phosphorus Magnesium Total Bilirubin AST ALT Alkaline Phosphatase Creatine Kinase 145 Creatine Kinase Index CK-MB (CK-2) Troponin I < 0.02 Total Protein Albumin Urine Color Yellow Urine Appearance Clear Urine pH 6.5 Ur Specific [place] 1.020 Urine Protein Negative Urine Glucose (UA) Negative Urine Ketones Negative Urine Blood Negative Urine Nitrite Negative Urine Bilirubin Negative Urine Urobilinogen 0.2 Ur Leukocyte Esterase Negative 09/15/17 09/15/17 09/15/17 07:50 07:50 07:50 WBC RBC Hgb Hct MCV MCH MCHC RDW Plt Count MPV Neutrophils % Lymphocytes % Monocytes % Eosinophils % Basophils % PT with INR 12.9 INR 1.16 Sodium 138 Potassium 4.2 Chloride 105 Carbon Dioxide 28 Anion Gap 5 L BUN 17 Creatinine < 0.8 Creat Clearance w eGFR > 60 Random Glucose 99 Calcium 9.5 Phosphorus 3.3 Magnesium 2.0 Total Bilirubin 1.0 D AST 35 ALT 37 Alkaline Phosphatase 88 Creatine Kinase Creatine Kinase Index CK-MB (CK-2) Troponin I < 0.03 Total Protein 6.9 Albumin 3.8 Urine Color Urine Appearance Urine pH Ur Specific [place] Urine Protein Urine Glucose (UA) Urine Ketones Urine Blood Urine Nitrite Urine Bilirubin Urine Urobilinogen Ur Leukocyte Esterase 09/15/17 07:50 WBC RBC Hgb Hct MCV MCH MCHC RDW Plt Count MPV Neutrophils % Lymphocytes % Monocytes % Eosinophils % Basophils % PT with INR INR Sodium Potassium Chloride Carbon Dioxide Anion Gap BUN Creatinine Creat Clearance w eGFR Random Glucose Calcium Phosphorus Magnesium Total Bilirubin AST ALT Alkaline Phosphatase Creatine Kinase 147 Creatine Kinase Index CK-MB (CK-2) Troponin I Total Protein Albumin Urine Color Urine Appearance Urine pH Ur Specific [place] Urine Protein Urine Glucose (UA) Urine Ketones Urine Blood Urine Nitrite Urine Bilirubin Urine Urobilinogen Ur Leukocyte Esterase IMAGING chest xray: no acute pathology ekg: nsr non specific t wave abnormality, unchanged from prior HOSPITAL COURSE: Patient is a 67 y/o female that was admitted from the emergency department for chest pain r/o acs, troponin x 3 wnl, ekg unchanged from prior. Patient denies any chest discomfort at this time, she reports her symptoms resolved after belching this morning. Patient was kept on 24 hour telemetry monitoring , no events was noted. PLAN - discharge home, bland diet with ppi - strict follow up with primary care physician within 1 week Date of Admission:09/14/17 Date of Discharge: 09/15/17 Minutes to complete discharge: 45 Discharge Summary Reason For Visit: CHEST PAIN Current Active Problems Chest pain (Acute) Condition: Stable - Instructions Diet, Activity, Other Instructions: resume low sodium bland diet continue protonix daily as prescribed small frequent meals throughout the day please follow up with GI within 2 weeks if any new or persistent symptoms develop please return to the emergency department Disposition: HOME - Home Medications Comprehensive Discharge Medication List: Ambulatory Orders Calcium Carbonate [Tums] 1 tab PO PRN 09/14/17 Esomeprazole Magnesium [Nexium 24Hr] 20 mg PO PRN 09/14/17 This patient is new to me today: Yes Date on this admission: 09/15/17 Emergency Visit: No Critical Care patient: No - Discharge Referral Referred to [facility] No
[2017-09-15 11:07] LABS: CHOLESTEROL 233 mg/dl; HDL CHOLESTEROL 43 mg/dl (29-89); LDL CHOLESTEROL (ONLY DFH) 149 mg/dl; TRIGLYCERIDES 206 mg/dl (35-160)
[2017-09-15 11:32] LABS: N-TERMINAL BNP 62.81 pg/ml (5-125)
[2017-09-15] MEDS ORDERED: PANTOPRAZOLE 40 MG TABLET (FP) PO ONE (12:30)
--- NOTE | 2017-09-15 12:59 | EKG ---
Test Reason : Blood Pressure : / mmHG Vent. Rate : 073 BPM Atrial Rate : 073 BPM P-R Int : 126 ms QRS Dur : 078 ms QT Int : 414 ms P-R-T Axes : 062 001 -07 degrees QTc Int : 456 ms NORMAL SINUS RHYTHM NONSPECIFIC ST ABNORMALITY ABNORMAL ECG WHEN COMPARED WITH ECG OF 23-JUN-2017 13:48, NO SIGNIFICANT CHANGE WAS FOUND Confirmed by HENRIK RENE MD ([id number]) on 09/15/2017 12:59:43 PM Referred By: MD MCMAHON Confirmed By:HENRIK RENE MD
--- NOTE | 2017-09-15 16:15 | EKG ---
Test Reason : Blood Pressure : / mmHG Vent. Rate : 059 BPM Atrial Rate : 059 BPM P-R Int : 130 ms QRS Dur : 084 ms QT Int : 432 ms P-R-T Axes : 054 013 000 degrees QTc Int : 427 ms SINUS BRADYCARDIA NONSPECIFIC ST AND T WAVE ABNORMALITY ABNORMAL ECG WHEN COMPARED WITH ECG OF 14-SEP-2017 16:49, NONSPECIFIC T WAVE ABNORMALITY NOW EVIDENT IN ANTERIOR LEADS Confirmed by ANJU OLSON, HENRIK ([id number]) on 09/15/2017 4:14:37 PM Referred By: ALYCE Confirmed By:HENRIK RENE MD
--- NOTE | 2017-09-21 10:37 | EKG ---
Test Reason : Blood Pressure : / mmHG Vent. Rate : 066 BPM Atrial Rate : 066 BPM P-R Int : 130 ms QRS Dur : 080 ms QT Int : 392 ms P-R-T Axes : 043 -05 -17 degrees QTc Int : 410 ms NORMAL SINUS RHYTHM NONSPECIFIC ST AND T WAVE ABNORMALITY ABNORMAL ECG WHEN COMPARED WITH ECG OF 15-SEP-2017 05:51, NO SIGNIFICANT CHANGE WAS FOUND Confirmed by BOB OLSON, ESTEVAN ([id number]) on 09/21/2017 10:37:36 AM Referred By: DIOGENES Confirmed By:ESTEVAN ROJAS MD
== END 2017-09-15 13:35 | disposition home or self-care (01) ==
LOC: FER 16:38 → FM/S 19:43
PROVIDERS: ADMIT Internal Medicine; ATTEND Nurse Practitioner Family
PROC: 3E033GC Introduction of Other Therapeutic Substance into Peripheral Vein, Percutaneous Approach (ICD-10-PCS; principal; 2017-09-14)
DX: R07.2 Precordial pain (principal); I24.9 Acute ischemic heart disease, unspecified; K21.9 Gastro-esophageal reflux disease without esophagitis
CPT/HCPCS: 36415; 71045-TC-FY; 80053; 80061; 81003; 82550; 82553; 83735; 83880; 84100; 84484; 85025; 85610; 93005; 93010; 96374; 99284-25; G0378

== ENCOUNTER 2018-04-27 20:14 | Emergency (ER) | payer OTHER ==
[2018-04-27 20:17] VITALS: BP 126/61; PULSE 70; TEMP 98.5; BMI 42.5
--- NOTE | 2018-04-27 20:17 | PDOC ---
Rapid Medical Evaluation Time Seen by Provider: 04/27/18 20:15 Medical Evaluation: Allergies Allergy/AdvReac Type Severity Reaction Status Date / Time No Known Allergies Allergy Verified 09/14/17 16:40 I have performed a brief in-person evaluation of this patient. The patient presents with a chief complaint of: trip and fall. Right knee pain Pertinent physical exam findings: minimal swelling right knee I have ordered the following: xray right knee The patient will proceed to the ED for further evaluation. Discharge Disposition - Diagnosis Right knee pain - Referrals - Patient Instructions - Post Discharge Activity
--- NOTE | 2018-04-27 21:09 | PDOC ---
History of Present Illness - General Chief Complaint: Pain, Acute Stated Complaint: FALL/RT KNEE INJURY Time Seen by Provider: 04/27/18 20:15 History Source: Patient Exam Limitations: No Limitations - History of Present Illness Initial Comments: 04/27/18 21:03 HISTORY OF PRESENT ILLNESS: This is 68-year-old lady with past medical history of osteoarthritis of the knees presents emergency department for evaluation of right knee pain status post trip and fall. Patient states she was walking in the hallway of her house when the family dog ran in front of her causing her to lose her balance falling down landing on her right knee. She's not been able to ambulate since the time of the initial injury. She denies head trauma or LOC. No recent travel or sick contacts. PAST MEDICAL HISTORY: OA of knees SURGICAL HISTORY: Denies ALLERGIES: No known drug allergies REVIEW OF SYSTEMS General/Constitutional: Denies fever or chills. Denies weakness, weight change. HEENT: Denies change in vision. Denies ear pain or discharge. Denies sore throat. Cardiovascular: Denies chest pain or shortness of breath. Respiratory: Denies cough, wheezing, or hemoptysis. Gastrointestinal: Denies nausea, vomiting, diarrhea or constipation. Denies rectal bleeding. Genitourinary: Denies dysuria, frequency, or change in urination. Musculoskeletal: Right knee pain. Denies neck or back pain. Skin and breasts: Denies rash or easy bruising. Neurologic: Denies headache, vertigo, loss of consciousness, or loss of sensation. Psychiatric: Denies depression or anxiety. Endocrine: Denies increased thirst. Denies abnormal weight change. Hematologic/Lymphatic: Denies anemia, easy bleeding, or history of blood clots. Allergic/Immunologic: Denies hives or skin allergy. Denies latex allergy. PHYSICAL EXAM General Appearance: Well-appearing, appropriately dressed. No apparent distress , no intoxication. HEENT: EOMI, PERRLA, normal ENT inspection, normal voice, TMs normal, pharynx normal. No conjunctival pallor. No photophobia, scleral icterus. Neck: Supple. Trachea midline. No tenderness, rigidity, carotid bruit, stridor , lymphadenopathy, or thyromegaly. Respiratory/Chest: Lungs CTAB. No shortness of breath, chest tenderness, respiratory distress, accessory muscle use. No crackles, rales, rhonchi, stridor , wheezing, dullness Cardiovascular: RRR. S1, S2. No JVD, murmur, bradycardia, tachycardia. Vascular Pulses: Dorsalis-Pedis (R): 2+, Dorsalis-Pedis (L): 2+ Gastrointestinal/Abdominal: Normal bowel sounds. Abdomen soft, non-distended. No tenderness or rebound tenderness. No organomegaly, pulsatile mass, guarding, hernia, hepatomegaly, splenomegaly. Lymphatic: No adenopathy, tenderness. Musculoskeletal/Extremities: Normal inspection. FROM of all extremities, normal capillary refill. Pelvis Stable. No CVA tenderness. Right knee tender to palpation around the entire knee but worse in the popliteal region. No palpable masses present. Negative Nael sign. No bony tenderness to tibia, fibula or femur. Patella is mobile. Integumentary: Appropriate color, dry, warm. 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 Fully oriented, alert. Appropriate mood/affect. Motor strength 5/5. No appreciable EOM palsy, facial droop or sensory deficit. Past History - Past Medical History Allergies/Adverse Reactions: Allergies Allergy/AdvReac Type Severity Reaction Status Date / Time No Known Allergies Allergy Verified 04/27/18 20:17 Home Medications: Ambulatory Orders Acetaminophen [Tylenol] 325 mg PO ASDIR 04/27/18 COPD: No GI Disorders: Yes (GASTRIC ANTRUM ULCER 09/05) HTN: No Hypercholesterolemia: Yes - Suicide/Smoking/Psychosocial Hx Smoking History: Never smoked Have you smoked in the past 12 months: No Hx Alcohol Use: No Drug/Substance Use Hx: No Substance Use Type: None *Physical Exam - Vital Signs Last Vital Signs Temp Pulse Resp BP Pulse Ox 98.5 F 70 18 126/61 98 04/27/18 20:15 04/27/18 20:15 04/27/18 20:15 04/27/18 20:15 04/27/18 20:15 Moderate Sedation - Procedure Monitoring Vital Signs: Procedure Monitoring Vital Signs Temperature 98.5 F 04/27/18 20:15 Pulse Rate 70 04/27/18 20:15 Respiratory Rate 18 04/27/18 20:15 Blood Pressure 126/61 04/27/18 20:15 O2 Sat by Pulse Oximetry (%) 98 04/27/18 20:15 Medical Decision Making - Medical Decision Making 04/27/18 21:05 A/P: 68 old woman with right knee pain status post trip and fall Right knee is diffusely tender worse in the popliteal No palpable masses noted Negative Nael sign Patella is mobile No bony tenderness to femur, tibia or fibula. Tender to palpation of the patella. Minimal swelling noted Patient has an appointment with an orthopedist for evaluation of osteoarthritis of the knees. The patient and the son do not remember the name of the orthopedist a very been in contact with. X-rays of the right knee as read by me: No acute fractures or dislocations present. Immobilizer, crutches, Percocet one tablet Results of x-ray have been reviewed with the patient who verbalizes understanding of plan. Patient agrees to take Naprosyn for pain control until she is evaluated by an orthopedist. *DC/Admit/Observation/Transfer Diagnosis at time of Disposition: Right knee pain Qualifiers: Chronicity: acute Qualified Code(s): M25.561 - Pain in right knee - Discharge Dispostion Disposition: HOME Condition at time of disposition: Stable Decision to Admit order: No - Referrals Referrals: Rosendo Ochoa MD [Staff Physician] - - Patient Instructions Additional Instructions: Take Tylenol or Aleve as needed for pain. Follow manufacturers instructions for appropriate dosage. Try not to walk or bear weight on your knee as much as possible for the next 3 days. Apply ice for 20 minutes and removed for at least 20 minutes before reapplying the ice. Keep immobilizer on your knee as much as possible. Whenever possible keep her foot elevated. You've been given the number for an orthopedist. If symptoms do not resolve within the next 7 days call the orthopedist for further evaluation. Return to emergency department for discoloration of the foot, numbness or tingling to the foot, worsening pain, or any other concerns. Thank you very much for choosing us to provide your emergent healthcare needs. - Post Discharge Activity
== END 2018-04-27 21:30 | disposition home or self-care (01) ==
LOC: JERFT 20:14
PROC: 2W3RXYZ Immobilization of Left Lower Leg using Other Device (ICD-10-PCS; principal; 2018-04-27)
DX: S89.81XA Other specified injuries of right lower leg, initial encounter (principal); M17.0 Bilateral primary osteoarthritis of knee; W01.0XXA Fall on same level from slipping, tripping and stumbling without subsequent striking against object, initial encounter; Y93.89 Activity, other specified; Y92.038 Other place in apartment as the place of occurrence of the external cause; Y99.8 Other external cause status
CPT/HCPCS: 73560-TC-RT-FY; 99282-25

== ENCOUNTER 2018-07-07 06:23 | Day surgery (SDC) | payer OTHER ==
[~2018-07-07 06:23] MED LIST: CEFAZOLIN 2 GM/D5W 2 GM/50 ML ML IVPB ONE; CELECOXIB 200 MG CAPSULE PO ONE; GABAPENTIN 300 MG CAPSULE (FP) PO ONE; ROPIVICAINE 0.2%/MORPH PF/KETOROLAC - 51ML DISP.SYRINGE IA ONE; TRANEXAMIC ACID 1000 MG/10 ML VIAL IVPUSH ONE; oxyCODONE HCL 10 MG SUSTAINED ACTING TABLET PO ONE
[2018-07-07 06:50] VITALS: BMI 38.3
[2018-07-07] MEDS ORDERED: MIDAZOLAM HCL 2 MG/2 ML SINGLE DOSE VIAL ONE ×2 (06:57)
[2018-07-07] MEDS ORDERED: ceFAZolin SODIUM 1 GM VIAL ONE ×3 (07:23→08:32)
[2018-07-07] MEDS ORDERED: VANCOMYCIN 1,000 MG VIAL (RESTRICTED TO ID ONLY) ONE (07:23)
[2018-07-07] MEDS ORDERED: MAG HYDROX/AL HYDROX/SIMETH 30 ML UNIT-DOSE CUP PO PRN (08:07)
[2018-07-07] MEDS ORDERED: ONDANSETRON 4 MG/2 ML VIAL IVPUSH PRN ×2 (08:07→10:24)
--- NOTE | 2018-07-07 08:07 | HP ---
[facility] - Chief Complaint Chief Complaint: right knee pain - Past Medical History Allergies/Adverse Reactions: Allergies Allergy/AdvReac Type Severity Reaction Status Date / Time No Known Allergies Allergy Verified 07/07/18 07:01 - Current Medications Current Medications: Home Medications Medication Instructions Recorded Ibuprofen [Motrin -] 400 mg PO PRN PRN 07/07/18 Satellite Physical Exam - Physical Examination Vital Signs: Vital Signs Period Temp Pulse Resp BP Sys/Arellano Pulse Ox Last 24 Hr 98.0 F 72 16 120/68 96-96 General Appearance: Well Nourished, Well Developed, Alert & Oriented x3 ENT: Clear Lung: Normal air movement Heart: Regular rate & rhythm Extremities: Other (right knee- + swelling, + ttp medially, decr rom, nvi xrays show grade 4 medial djd) Neurological: Intact, Alert, Oriented Satellite Impression/Plan - Impression/Plan Impression: right knee medial djd Operative Procedure: right medial nicki ukr Date to be Performed: 07/07/18
[2018-07-07] MEDS ORDERED: LACTATED RINGERS SOLUTION 1,000 ML IV SCH (08:15)
[2018-07-07] MEDS ORDERED: ROPIVICAINE 0.2%/MORPH PF/KETOROLAC - 51ML DISP.SYRINGE IA ONE ×3 (08:35→09:47)
[2018-07-07] MEDS ORDERED: TRANEXAMIC ACID 1000 MG/10 ML VIAL ONE (08:48)
[2018-07-07] MEDS ORDERED: GELATIN, ABSORBABLE 100 EACH SPONGE TP ONE ×2 (09:29→09:32)
[2018-07-07] MEDS ORDERED: THROMBIN (BOVINE) 5,000 UNIT VIAL TP ONE ×2 (09:29→09:32)
[2018-07-07] MEDS ORDERED: MULTIVITAMINS (DAILY MVI) TABLET (FP) PO SCH (10:00)
[2018-07-07] MEDS ORDERED: PANTOPRAZOLE 40 MG TABLET (FP) PO SCH (10:00)
--- NOTE | 2018-07-07 10:05 | OP ---
Operative Note - Note: Operative Date: 07/07/18 (rafat) Pre-Operative Diagnosis: right knee medial djd Operation: right medial nicki ukr Post-Operative Diagnosis: Same as Pre-op Surgeon: Timothy Trejo Wood Scrap Handler: Usman Victor Anesthesiologist/BISCUIT FACTORY WORKER: Fercho Salomon Anesthesia: Spinal, Local Specimens Removed: bone fragments Estimated Blood Loss (mls): 100 Operative Report Dictated: Yes
[2018-07-07] MEDS ORDERED: PROMETHAZINE HCL 25 MG/1 ML VIAL IVPB PRN (10:24)
[2018-07-07] MEDS ORDERED: ACETAMINOPHEN 1000 MG/100 ML VIAL (NON FORMULARY) IVPB ONE (10:25)
--- NOTE | 2018-07-07 15:46 | SPEC ---
DATE OF OPERATION: 06/27/2018 PREOPERATIVE DIAGNOSIS: Degenerative joint disease, right knee. POSTOPERATIVE DIAGNOSIS: Degenerative joint disease, right knee. PROCEDURE: Right medial unicompartmental knee replacement with robotic-assisted navigation (MAKOplasty) and patelloplasty. SURGICAL ATTENDING: Timothy Trejo MD HEEL PRICKER: ASHLYN Jordan ANESTHESIA: Regional and spinal. CLOSURE: Medial unicompartmental NATE components with a 4 femur, 4 tibia, and an 8 polyethylene; No. 1 Vicryl, fascia; 0 and 2-0, subcutaneous; 3-0 Monocryl subcuticular with skin glue for skin; 4-0 undyed Vicryl for pin sites. ESTIMATED BLOOD LOSS: Negligible. TOURNIQUET TIME: Approximately 24 minutes. COMPLICATIONS: None. CONDITION: To recovery in stable condition. DESCRIPTION OF OPERATIVE PROCEDURE: Patient was taken to the operating room on June 27, 2018. Spinal and regional anesthesia was administered by the anesthesiologist. IV Kefzol and TXA were administered prophylactically prior to the case. A well-padded pneumatic tourniquet was placed on the right proximal thigh. The right lower extremity was prepped and draped in the usual sterile fashion. A 6- to 8-cm longitudinal incision over the medial side of the patella from mid patella to the tibial tubercle was incised and was deepened using Bovie cautery. An arthrotomy was then made just medial to the patellar tendon and the patella. Subperiosteal dissection was done on the anteromedial proximal tibia all the way back to the MCL. Partial fat pad excision was performed, exposing the medial compartment. Checkpoint was malleable at both the femur and the tibia. Using 2 stab incisions in the femur 1 handbreadth above the patella on the femur and 2 stab incisions 1 handbreadth below the tibial tubercle on the tibia, 2 threaded pins were drilled in parallel fashion from anterior to posterior, going through the proximal cortex and engaging the 2nd but not through the 2nd cortex. To these threaded pins were fastened navigation rays, 1 on the femur and 1 on the tibia. The knee was then registered with the navigation device with the center of the rotation of the hip, medial and lateral malleoli, and multiple points both on the femur and on the tibia. Excellent registration of less than 0.5 mm was obtained on both to ensure adequate registration. The navigation device ensured us to "pop the bubbles" both on the femur and the tibia and that was performed and passed registration. The knee was then thoroughly inspected to remove all osteophytes both on the femur and the tibia. Also, osteophytes on the trochlea and on the surface of the patella were removed as well. The knee was then stressed with valgus stress at 0, 30, 60, 90, and 120 degrees of flexion. This propagated a looseness/tightness graft. The virtual positions of the components were then optimized to ensure an excellent graft. The tracking also was optimized by manipulating the virtual position to ensure that the femoral component articulated with the central portion of the tibial component. The robot was then brought into the field and was registered. The robot was used to bur the bone on both the femur and the tibia as to the specifications of the components. The trial components were then applied on both the femur and the tibia with an appropriate polyethylene insert. The knee was taken through a range of motion and found to have full extension, full flexion, with excellent stability. Stressing the graft revealed an excellent looseness/tightness graft with the trial components in place. The trial components were removed. The knee was thoroughly irrigated with a copious amount of antibiotic irrigation. The real components were then cemented in using modern generation cement techniques with antibiotic cement and pressurization. After the cement was hardened, the knee was thoroughly inspected to remove all excess cement. The real polyethylene insert was then clipped into place. Range of motion and stability were again assessed to be as they were with the trials. At this time, the pins and the checkpoints were removed. The knee was again thoroughly irrigated. The arthrotomy was closed with No. 1 Vicryl, 0 and 2-0 subcutaneous, and 3-0 Monocryl subcuticular with skin glue for the skin, 4-0 undyed Vicryl for the pin sites. Sterile pressure dressing was placed over the knee. Patient awakened from anesthesia and transferred to recovery in stable condition. No complications. Estimated blood loss negligible. X-rays postoperatively revealed excellent position of the components. Selvin [id number]
[2018-07-07] MEDS ORDERED: CEFAZOLIN 2 GM in DEXTROSE 5%-WATER - 50 ML IVPB SCH (16:00)
[2018-07-07] MEDS: SENNOSIDES/DOCUSATE COMBO (SENNA PLUS) TABLET (UD) PO SCH (21:07)
[2018-07-07] MEDS: oxyCODONE HCL 5 MG TABLET PO PRN (21:07)
[2018-07-08] MEDS ORDERED: CEFAZOLIN 2 GM/D5W 2 GM/50 ML ML IVPB ONE
[2018-07-08 06:31] VITALS: BP 109/58; PULSE 58; TEMP 98
[2018-07-08] MEDS ORDERED: ASPIRIN 325 MG TABLET PO SCH (08:00)
[2018-07-08] MEDS: SENNOSIDES/DOCUSATE COMBO (SENNA PLUS) TABLET (UD) PO SCH (09:47)
[2018-07-08] MEDS: oxyCODONE HCL 5 MG TABLET PO PRN (09:48)
== END 2018-07-08 10:25 | disposition home health service (06) ==
LOC: FASUSAT 06:23 → FM/S 06:23 → FASUSAT 07-08 10:25
PROVIDERS: ATTEND Orthopaedic Surgery
PROC: 8E0YXBZ Computer Assisted Procedure of Lower Extremity (ICD-10-PCS; 2018-07-07)
PROC: 8E0X0CZ Robotic Assisted Procedure of Upper Extremity, Open Approach (ICD-10-PCS; 2018-07-07)
PROC: 0SRC0L9 Replacement of Right Knee Joint with Medial Unicondylar Synthetic Substitute, Cemented, Open Approach (ICD-10-PCS; principal; 2018-07-07 08:48)
DX: M17.11 Unilateral primary osteoarthritis, right knee (principal)
CPT/HCPCS: 20985; 27446; C1776; S2900; 73560-TC-RT-FY; 94760; 97116-GP; 97161-GP

== ENCOUNTER 2018-12-01 06:11 | Day surgery (SDC) | payer OTHER ==
[2018-11-28 13:45] VITALS: BMI 39.4
[2018-12-01] MEDS ORDERED: LIDOCAINE 1%/EPI 1:100000 (20 ML MULTI DOSE VIAL) ONE (07:11)
[2018-12-01] MEDS ORDERED: BUPIVACAINE HCL/PF 0.5% (5MG/ML) 10 ML VIAL ONE (07:12)
[2018-12-01] MEDS ORDERED: PROPOFOL 20 ML ONE ×2 (07:19)
[2018-12-01] MEDS ORDERED: MIDAZOLAM HCL 2 MG/2 ML SINGLE DOSE VIAL ONE (07:19)
[2018-12-01] MEDS ORDERED: SUCCINYLCHOLINE CHLORIDE 200 MG/10 ML VIAL ONE (07:19)
[2018-12-01] MEDS ORDERED: LIDOCAINE 1%/EPI 1:100000 (50 ML MULTI DOSE VIAL) INF ONE (07:47)
[2018-12-01] MEDS ORDERED: ONDANSETRON 4 MG/2 ML VIAL ONE (07:53)
[2018-12-01] MEDS ORDERED: DEXAMETHASONE SOD PHOSPHATE 4 MG/1 ML VIAL ONE (07:53)
[2018-12-01] MEDS ORDERED: LIDOCAINE HCL/PF 2% SDV 5ML VIAL ONE (07:53)
[2018-12-01] MEDS ORDERED: LIDOCAINE HCL 2% JELLY (5 ML/TUBE) ONE (07:53)
[2018-12-01] MEDS ORDERED: ceFAZolin SODIUM 1 GM VIAL ONE (07:53)
[2018-12-01] MEDS ORDERED: KETOROLAC TROMETHAMINE 30 MG/1 ML VIAL ONE (07:53)
--- NOTE | 2018-12-01 07:57 | HP ---
[facility] - Chief Complaint Chief Complaint: right knee pain - Past Medical History Allergies/Adverse Reactions: Allergies Allergy/AdvReac Type Severity Reaction Status Date / Time No Known Allergies Allergy Verified 11/28/18 13:33 - Current Medications Current Medications: Home Medications Medication Instructions Recorded Oxycodone HCl/Acetaminophen 1 tab PO Q6H #20 tablet MDD 4 12/01/18 [Percocet 5-325 mg Tablet] [facility] Physical Exam - Physical Examination Vital Signs: Vital Signs Period Temp Pulse Resp BP Sys/Arellano Pulse Ox Last 24 Hr 97.7 F 70 18 115/66 97 General Appearance: Well Nourished, Well Developed, Alert & Oriented x3 ENT: Clear Lung: Normal air movement Heart: Regular rate & rhythm Extremities: Other (right knee- + swelling, + ttp, decr rom, + mcmurrays, nvi, MRi + mt) Neurological: Intact, Alert, Oriented [facility] Impression/Plan - Impression/Plan Impression: right knee internal derangement Operative Procedure: right knee arthroscopy Date to be Performed: 12/01/18
[2018-12-01] MEDS ORDERED: BUPIVACAINE HCL/PF 0.5% (5MG/ML) 10 ML VIAL IJ ONE (08:22)
[2018-12-01] MEDS ORDERED: oxyCODONE HCL 5 MG TABLET PO PRN ×2 (08:34)
[2018-12-01] MEDS ORDERED: PROMETHAZINE HCL 25 MG/1 ML VIAL IVPUSH PRN (08:34)
[2018-12-01] MEDS ORDERED: ONDANSETRON 4 MG/2 ML VIAL IVPUSH PRN (08:34)
[2018-12-01 10:23] VITALS: TEMP 97.8
--- NOTE | 2018-12-01 10:23 | OP ---
Operative Note - Note: Operative Date: 12/01/18 (rafat) Pre-Operative Diagnosis: right knee internal derangement s/p medial ukr Operation: right knee arthroscopy with PLM Post-Operative Diagnosis: Same as Pre-op Surgeon: Timothy Trejo Anesthesia: General, Local Specimens Removed: shavings Estimated Blood Loss (mls): 5 Operative Report Dictated: Yes
[2018-12-01 11:22] VITALS: BP 112/65; PULSE 61
--- NOTE | 2018-12-02 04:20 | OP ---
DATE OF OPERATION: 12/01/2018 PREOPERATIVE DIAGNOSIS: Internal derangement, right knee. POSTOPERATIVE DIAGNOSIS: Internal derangement, right knee. PROCEDURE: Arthroscopy, right knee, with partial lateral meniscectomy. SURGICAL ATTENDING: Timothy Trejo MD ANESTHESIA: General with LMA. CLOSURE: Nylon 4-0. COMPLICATIONS: None. CONDITION: To recovery room in stable condition. DESCRIPTION OF OPERATIVE PROCEDURE: Patient was taken to the operating room on December 01, 2018. General anesthesia with LMA was administered by the anesthesiologist. IV Kefzol was administered prophylactically prior to the case. The right lower extremity was prepped and draped in the usual sterile fashion. The medial and lateral infrapatellar portal sites were made with a 15 blade followed by a blunt trocar. The scope was placed in the lateral infrapatellar portal and up into the suprapatellar pouch. The knee was inflated with a cocktail of 10 mL of 1% Xylocaine, 10 mL of 0.5% Marcaine, and 20 mL of arthroscopic saline. After allowing the anesthetic to work on the knee, the procedure was performed. The pouch was visualized to be clean. The medial and lateral gutters were visualized to be clean. The undersurface of the patella and trochlea were visualized to be completely intact with no arthritis. Scoping of the medial compartment revealed intact medial unicompartmental knee replacement with no evidence of any loosening and excellent tracking of the femur on the tibia. No loose bodies were seen. No excess cement in any location. The 2 gutters were visualized, also noted to be free of any loose bodies or retained cement. At 90 degrees, the ACL was visualized, probed, and found to be intact. In the figure 4 position, the lateral compartment was entered. The lateral meniscus was found to have an extensive flap tear of almost the entire lateral meniscus. The lateral femoral condyle and lateral tibial plateau were almost basically intact though. Using arthroscopic biters and the shaver the lateral meniscus was debrided back to smooth stable meniscal tissue. Any bleeders were cauterized using the ArthroCare device. The knee was then thoroughly irrigated and drained of the fluid. Postoperative infusion of 20 mL of 0.5% Marcaine for postoperative analgesia was performed at the end of the case. The portals were closed using 3-0 nylon. A sterile pressure dressing was applied. Patient awakened from anesthesia and transferred to recovery in stable condition. No complications. Estimated blood loss negligible. Selvin BULLARD/[id number]
== END 2018-12-01 10:40 | disposition home or self-care (01) ==
LOC: FASU 06:11
PROVIDERS: ATTEND Orthopaedic Surgery
PROC: 0SBC4ZZ Excision of Right Knee Joint, Percutaneous Endoscopic Approach (ICD-10-PCS; principal; 2018-12-01 07:47)
DX: S83.281A Other tear of lateral meniscus, current injury, right knee, initial encounter (principal); X58.XXXA Exposure to other specified factors, initial encounter; Y93.9 Activity, unspecified; Y92.9 Unspecified place or not applicable
CPT/HCPCS: 94760

== ENCOUNTER 2022-06-13 14:54 | Emergency (ER) | payer OTHER ==
[2022-06-13 14:59] VITALS: BMI 40.7
[2022-06-13] MEDS ORDERED: ACETAMINOPHEN 1000 MG/100 ML BAG IVPB ONE (15:21)
[2022-06-13] MEDS ORDERED: ACETAMINOPHEN INJECTION 100 ML IVPB ONE (15:46)
[2022-06-13 16:17] LABS: BASO % 1.2 % (0-2.0); EOS % 3.9 % (0-4.5); HEMATOCRIT 36.7 % (32.4-45.2); HEMOGLOBIN 12.2 GM/dL (10.7-15.3); MCH 28.3 pg (25.7-33.7); MCHC 33.3 g/dl (32.0-36.0); MEAN PLT VOLUME 8.6 fl (7.5-11.1); MONO % 6.6 % (3.8-10.2); NEUT % 49.3 % (42.8-82.8); PLATELET COUNT 229 10^3/uL (134-434); RBC 4.32 M/mm3 (3.60-5.2); RDW 14.1 % (11.6-15.6); WHITE BLOOD COUNT 8.5 K/mm3 (4.0-10.0)
[2022-06-13 16:33] LABS: ACTIVATED PTT 35.4 SECONDS (25.2-36.5); INR 1.07 (0.83-1.09); PROTHROMBIN TIME (PATIENT) 12.3 SEC (9.7-13.0)
[2022-06-13 17:00] LABS: ALBUMIN 3.5 g/dl (3.4-5.0); BLOOD UREA NITROGEN 20.1 mg/dL (7-18); CALCIUM 9.5 mg/dL (8.5-10.1); MAGNESIUM 2.3 mg/dL (1.8-2.4)
[2022-06-13 17:01] LABS: CREATININE 0.7 mg/dL (0.55-1.3)
[2022-06-13 17:02] LABS: BILIRUBIN,TOTAL 0.4 mg/dL (0.2-1)
[2022-06-13 17:54] VITALS: BP 128/66; PULSE 62; RESP 16; TEMP 98.6
== END 2022-06-13 19:26 | disposition home or self-care (01) ==
LOC: JER 14:54
PROC: 3E0333Z Introduction of Anti-inflammatory into Peripheral Vein, Percutaneous Approach (ICD-10-PCS; principal; 2022-06-13)
DX: R05.1 Acute cough (principal); J06.9 Acute upper respiratory infection, unspecified
CPT/HCPCS: 0241U-QW; 36415; 71046-TC-FY; 80053; 83735; 84484; 85025; 85610; 85730; 93005; 93010; 99285-25

== ENCOUNTER 2023-02-28 12:58 | Observation (INO) | payer MEDICARE, OTHER ==
[2023-02-28] MEDS ORDERED: ONDANSETRON 4 MG/2 ML VIAL IVPUSH ONE (14:02)
[2023-02-28] MEDS ORDERED: SODIUM CHLORIDE 0.9% 500 ML INFUS.BAG IV ONE (14:02)
[2023-02-28] MEDS ORDERED: ACETAMINOPHEN 1000 MG/100 ML BAG IVPB ONE (14:03)
[2023-02-28] MEDS ORDERED: ACETAMINOPHEN INJECTION 100 ML IVPB ONE (14:21)
[2023-02-28] MEDS ORDERED: ONDANSETRON 4 MG/2 ML VIAL ONE (14:22)
[2023-02-28 14:44] LABS: BASO % 1.8 % (0-2.0); HEMATOCRIT 38.5 % (32.4-45.2); HEMOGLOBIN 12.9 GM/dL (10.7-15.3); LYMPH % 34.5 % (8-40); MCH 28.1 pg (25.7-33.7); MCHC 33.4 g/dl (32.0-36.0); MEAN CELL VOLUME 84.2 fl (80-96); MEAN PLT VOLUME 8.4 fl (7.5-11.1); MONO % 6.2 % (3.8-10.2); NEUT % 54.5 % (42.8-82.8); PLATELET COUNT 221 10^3/uL (134-434); RBC 4.58 M/mm3 (3.60-5.2); RDW 14.2 % (11.6-15.6); WHITE BLOOD COUNT 6.9 K/mm3 (4.0-10.0)
[2023-02-28 15:26] LABS: POTASSIUM 3.9 mmol/L (3.5-5.1)
[2023-02-28 15:28] LABS: ALBUMIN 3.5 g/dl (3.4-5.0); CALCIUM 9.5 mg/dL (8.5-10.1)
[2023-02-28 15:29] LABS: BLOOD UREA NITROGEN 15.8 mg/dL (7-18); MAGNESIUM 2.3 mg/dL (1.8-2.4)
[2023-02-28 15:31] LABS: BILIRUBIN,TOTAL 0.5 mg/dL (0.2-1)
[2023-02-28 15:32] LABS: CREATININE 0.7 mg/dL (0.55-1.3)
[2023-02-28 15:33] LABS: TOT PROT 7.1 g/dl (6.4-8.2)
[2023-02-28] MEDS ORDERED: MECLIZINE HCL 25 MG TABLET (FP) PO ONE (15:56)
[2023-02-28] MEDS ORDERED: MECLIZINE HCL 25 MG TABLET (FP) ONE (16:06)
[2023-02-28 16:32] LABS: PH,URINE 5.5 (5.0-8.0); URINE APPEARANCE Clear; URINE BILIRUBIN Negative (NEGATIVE); URINE COLOR Yellow; URINE GLUCOSE (UA) Negative (NEGATIVE); URINE KETONE Negative (NEGATIVE); URINE LEUK ESTERASE Trace (NEGATIVE); URINE NITRITE Negative (NEGATIVE); URINE PROTEIN Negative (NEGATIVE); URINE UROBILINOGEN 0.2 mg/dL (0.2-1.0)
[2023-03-01] MEDS ORDERED: ACETAMINOPHEN 325 MG TABLET (FP) PO PRN (00:43)
[2023-03-01 01:37] VITALS: BMI 38.6
[2023-03-01 07:27] LABS: BASO % 1.2 % (0-2.0); EOS % 3.1 % (0-4.5); HEMATOCRIT 36.2 % (32.4-45.2); HEMOGLOBIN 11.8 GM/dL (10.7-15.3); LYMPH % 40.7 % (8-40); MCHC 32.6 g/dl (32.0-36.0); MEAN CELL VOLUME 85.9 fl (80-96); MEAN PLT VOLUME 8.8 fl (7.5-11.1); MONO % 7.1 % (3.8-10.2); NEUT % 47.9 % (42.8-82.8); PLATELET COUNT 221 10^3/uL (134-434); RBC 4.22 M/mm3 (3.60-5.2); RDW 14.1 % (11.6-15.6); WHITE BLOOD COUNT 7.4 K/mm3 (4.0-10.0)
[2023-03-01 07:55] LABS: ALBUMIN 3.2 g/dl (3.4-5.0); BLOOD UREA NITROGEN 13.8 mg/dL (7-18)
[2023-03-01 07:58] LABS: CREATININE 0.6 mg/dL (0.55-1.3)
[2023-03-01 08:00] LABS: BILIRUBIN,TOTAL 0.8 mg/dL (0.2-1); TOT PROT 6.4 g/dl (6.4-8.2)
[2023-03-01] MEDS ORDERED: MECLIZINE HCL 25 MG TABLET (FP) PO PRN (09:51)
[2023-03-01 15:46] VITALS: BP 128/72; PULSE 56; RESP 20; TEMP 98.1
== END 2023-03-01 17:48 | disposition home or self-care (01) ==
LOC: JER 12:58 → JERBED 18:35 → J4W 03-01 00:30
PROVIDERS: ADMIT Internal Medicine; ATTEND Internal Medicine
PROC: 3E033NZ Introduction of Analgesics, Hypnotics, Sedatives into Peripheral Vein, Percutaneous Approach (ICD-10-PCS; principal; 2023-02-28)
PROC: 3E033GC Introduction of Other Therapeutic Substance into Peripheral Vein, Percutaneous Approach (ICD-10-PCS; 2023-02-28)
PROC: 3E0337Z Introduction of Electrolytic and Water Balance Substance into Peripheral Vein, Percutaneous Approach (ICD-10-PCS; 2023-02-28)
DX: G45.9 Transient cerebral ischemic attack, unspecified (principal); E78.5 Hyperlipidemia, unspecified; R55 Syncope and collapse; R51.9 Headache, unspecified; M17.10 Unilateral primary osteoarthritis, unspecified knee; F17.290 Nicotine dependence, other tobacco product, uncomplicated
CPT/HCPCS: 36415; 70450-TC; 71045-TC-FY; 80053; 80061; 81003; 83036; 83605; 83735; 84443; 84484; 85025; 87086; 87186; 93005; 93010; 93306-TC; 96374; 96375; 99285-25; G0378